=== PATIENT | male | born 1960 | race Caucasian/White ===

== ENCOUNTER 2017-10-30 12:19 | Emergency (ER) | payer MEDICARE ==
[~2017-10-30] VITALS: Ht 172.7 cm; Wt 58.1 kg
[~2017-10-30 12:19] MED LIST: ALB6.7R INH; CEP500 PO; CEPH500C24 PO; CHOL100059 PO; CITA-128 PO; CLI150 PO; CLON1 PO; CYCL10TA29 PO; DIAZ2TAB72 PO; ENAL20TA99 PO; ESC10 PO; FLUO-177 PO; FLUO-202 PO; FOLI-68 PO; GAB300 PO; GABA-549 PO; HYDR-385 PO; HYDR-4309 PO; IPRA4AER IH; LEVO750T25 PO; LIPA1CAP67 PO; LOR7.5/325 PO; MELA1TAB23 PO; METF-420 PO; METO-253 PO; NICO-306 BC; OMEP-114 PO; OXYC-865 PO; PAN40 PO; PER PO; TAM4 PO; THIA100T62 PO; TRAM100T22 PO; TRAZ-156 PO; [UNRECOGNIZED DRUG - CODE] PO; [UNRECOGNIZED DRUG - CODE] PO; [UNRECOGNIZED DRUG - CODE] TD
--- NOTE | 2017-10-30 12:23 | ER Report ---
History and Physical Time Seen By : 12:22 HPI/ROS 57 y/o male alcoholic with known liver disease is s/p surgery to his left shoulder 4 days ago presents with a swollen left hand that is weeping yellow fluid. No fever/chills. No pain. Hand has been swollen since the surgery, and is improving. No pain/paresthesias in hand. No other complaints. Was worried that the yellow fluid represented an infection. Allergies: Coded Allergies: No Known Drug Allergies (Verified , 10/30/17) Home Meds Reported Medications Aspirin (ASPIRIN) 325 Mg Tablet, 325 MG PO QDAY, TAB 10/30/17 Lorazepam (LORAZEPAM) 1 Mg Tab, TID, TAB 10/30/17 Lipase/Protease/Amylase (CREON DR 6,000 UNITS CAPSULE) 1 Each Capsule.dr, 1 EACH PO TID 10/30/17 Enalapril Maleate (ENALAPRIL MALEATE) 20 Mg Tablet, 40 MG PO BID 07/29/15 Metoprolol Tartrate (METOPROLOL TARTRATE) 50 Mg Tab, 0.5 TAB PO BID, TAB 02/24/15 Hydrocodone Bit/Acetaminophen (HYDROCODON-ACETAMINOPHEN 5-325) 1 Each Tablet, 1 TAB PO Q8H Y for severe pain 11/19/14 Gabapentin (GABAPENTIN) 300 Mg Capsule, 1 CAP PO TID, CAPSULE 11/19/14 Trazodone Hcl (TRAZODONE HCL) 50 Mg Tablet, 2 TAB PO QHS 11/19/14 Fluoxetine Hcl (FLUOXETINE HCL) 20 Mg Capsule, 3 CAP PO DAILY, CAPSULE 11/19/14 Cholecalciferol (Vitamin D3) (VITAMIN D3) 1,000 Unit Capsule, 2 CAP PO DAILY, CAPSULE 11/19/14 Folic Acid (FOLIC ACID) 1 Mg Tablet, 1 TAB PO DAILY, TAB 11/19/14 Thiamine Hcl (THIAMINE HCL) 100 Mg Tablet, 1 TAB PO DAILY 11/19/14 Multivitamin W/Iron, Minerals (MULTIVITAMINS WITH IRON) 1 Each Tab.chew, 1 EACH PO DAILY, TAB.CHEW 11/19/14 Discontinued Reported Medications Cyclobenzaprine Hcl (CYCLOBENZAPRINE HCL) 10 Mg Tablet, 10 MG PO Q8H Y for PAIN , #9 TAB 07/29/15 Metformin Hcl (METFORMIN HCL) 1,000 Mg Tablet, 0.5 TAB PO BID TAKE ONE TABLET BY MOUTH TWO TIMES A DAY 11/19/14 Discontinued Scripts Hydrocodone Bit/Acetaminophen (NORCO 5-325 TABLET) 1 Each Tablet, 1 EACH PO Q4H Y for PAIN, #12 TAB Prov:CHARAN BREEN DO 05/29/17 Cephalexin Monohydrate (CEPHALEXIN) 500 Mg Cap, 500 MG PO TID for infection, # 20 CAP TAKE 1 CAPSULE BY MOUTH EVERY SIX HOURS Prov:CHARAN BREEN DO 05/29/17 Reviewed Nurses Notes: Yes Old Medical Records Reviewed: Yes Hx Smoking: Yes Smoking Status: Current: Every Day Smoker Hx Substance Use Disorder: No Hx Alcohol Use: Yes (see admission assessment) Constitutional Vital Sign - Last 24 Hours 10/30/17 10/30/17 10/30/17 10/30/17 12:23 12:23 12:29 12:30 Temp 97.4 Pulse 62 Resp 20 B/P (MAP) 106/70 106/70 (82) 105/75 (85) O2 Delivery Room Air O2 Flow Rate 3.0 10/30/17 12:34 Pulse 62 Pulse Ox 93 Physical Exam General Appearance: The patient is alert, has no immediate need for airway protection and no current signs of toxicity. Eyes: Pupils equal and round, icteric sclera Respiratory: Chest is non tender, lungs are clear to auscultation. Cardiac: regular rate and rhythm Gastrointestinal: Abdomen is soft and non tender, no masses, bowel sounds normal. Musculoskeletal: Surgical site c/d/i. Moderate swelling of left UE into hand. Noted is a yellow discoloration of all of the patients skin, n/v/ in tact Neck: Neck is supple and non tender. Skin: No rashes or lesions, swelling in left hand. Mild oozing of yellow serous fluid from a small break in skin. No erythema, no warmth, no fluctuance, no TTP DIFFERENTIAL DIAGNOSIS: After history and physical exam differential diagnosis was considered for infection, compartment syndrome, cellulitis, abscess Medical Decision Making ED Course/Re-evaluation ED Course No evidence of infection. Sister is at the bedside, and states that his skin and sclera are the same color as they always are. No evidence of compartment syndrome. No cellulitis. n/v in tact. Decision to Disposition Date: Oct 30, 2017 Decision to Disposition Time: 12:59 Depart Departure Latest Vital Signs Vital Signs Date Time Temp Pulse Resp B/P (MAP) Pulse Ox O2 Delivery O2 Flow Rate FiO2 10/30/17 12:34 62 93 10/30/17 12:30 105/75 (85) 10/30/17 12:29 3.0 10/30/17 12:23 97.4 20 Room Air Impression: Primary Impression: Edema Condition: Improved Disposition: HOME OR SELF-CARE Referrals: MELISSA COVARRUBIAS APRN [facility] HE[facility] ADVISOR-C (PCP) Patient Instructions: Edema,Peripheral Problem Qualifiers Primary Impression: Edema Edema type: localized Qualified Codes: R60.0 - Localized edema RIVAS ROTHMAN MD Oct 30, 2017 12:23
[2017-10-30 12:30] VITALS: BP 105/75
[2017-10-30] MEDS ORDERED: LOR1 (12:43)
[2017-10-30] MEDS ORDERED: LIPA1CAP59 PO (12:43)
[2017-10-30] MEDS ORDERED: ASPI-757 PO (12:44)
== END 2017-10-30 13:05 | disposition home or self-care (01) ==
LOC: ER 12:27
DX: R60.0 Localized edema (principal)
CPT/HCPCS: 99281

== ENCOUNTER 2018-01-31 10:30 | Outpatient (RCR) | payer OTHER, MEDICARE ==
--- NOTE | 2017-11-23 08:36 | PT INITIAL EVALUATION ---
MEDICAL DIAGNOSIS: Left Total Shoulder TREATMENT DIAGNOSIS: same DATE OF ONSET: 10/19/17 SUBJECTIVE: Marv De La Rosa presents to physical therapy status post L total shoulder on October 19, 2016 as a result of a fall on the 22 of May resulting in a L shoulder dislocation. He rates his resting pain to be 5/10. He reports that if he jerks his shoulder or moves quickly, he rates that the pain in his L shoulder increases to 9/10 or 10/10 for a brief moment and then returns to his resting 5/10 pain. He reports that he has been wearing the sling and moving his elbow and wrist around often. He reports that he would like to get back to camping, fishing, and washing dishes by the end of his PT. He reports that he continues to have pins and needles over his wrist, hand, and into his fingers on his L side, which started around the same time as the initial injury. Pain location is L anterior shoulder and described as achy, sore. Pain scale is 5 on a ten point pain scale. REHAB PROBLEM LIST: Increased Pain Decreased ROM Decreased Strength Decreased Endurance Decreased Function Decreased ADL's PREVIOUS MEDICAL HISTORY: See EMR OCCUPATION: Unemployed OBJECTIVE: Incision is fully healed without any signs or symptoms of infection Posture: He demonstrates B rounded shoulders, forward head, increased thoracic kyphosis, and decreased lumbar lordosis. ROM: PROM of L shoulder: abduction: 100 degrees, scaption: 120 degrees, flexion : 110 degrees, IR: 90 degrees at his side, ER: 20 degrees at his side. He demonstrated empty end feels with every directions Strength: Did not test due to recent surgical intervention Palpation: TTP: over L anterior shoulder Sensation: Decreased sensation over L C5-T1 dermatomes Special Tests: QuickDash: 91%. Mobility: Independent Gait: Normal Gait Mechanics ASSESSMENT: He will benefit from skilled physical therapy addressing the listed impairments to return to prior level of function. Short Term Goals 3 weeks: Pt will demonstrate full PROM into L shoulder flexion, abduction, and scaption to improve function and QOL. 6 weeks: Pt will demonstrate full AAROM into L shoulder flexion, abduction, and scaption to improve function and QOL. 8 weeks: Pt will demonstrate full AROM into L shoulder flexion, abduction, and scaption to improve function and QOL. 12 weeks: Pt will demonstrate return to L shoulder RTC and periscapular strength to 4+/5 or greater to improve function and QOL. Patient's Goals return to washing dishes, picking up wood, and camping/fishing PLAN: Patient to be seen for Manual Therapy/STM/MET Strengthening/condition Ice/Heat Range of Motion Spinal Stabilization Work Hardening/Cond Stretching Neuromuscular Re-ed Closed Chain Program Electrical Stim Posture/Body mechanics Home Exercise Program Therapeutic Activities 2-3/week for 12 weeks. If you have any questions, comments, or concerns about this report or plan, please contact me at . [facility]
[~2018-01-31 10:30] MED LIST changes: +ASPI-757 PO; +LIPA1CAP59 PO; +LOR1; -METF-420 PO; +METF-421 PO
== END 2018-02-20 ==
LOC: PT 10:30
PROVIDERS: ATTEND Nurse Practitioner Family
DX: Z47.1 Aftercare following joint replacement surgery (principal); Z96.612 Presence of left artificial shoulder joint; M25.512 Pain in left shoulder; R20.2 Paresthesia of skin
CPT/HCPCS: 97163

== ENCOUNTER 2018-02-24 10:27 | Outpatient (RCR) | payer OTHER, MEDICARE ==
--- NOTE | 2018-02-25 10:24 | PT PLAN OF CARE ---
Physician: Jazmyn Cui CHAMBER WORKER- Patient is being seen: 2x/week Therapist: Isra Koo, PT, DPT Medical Diagnosis: Left Total Shoulder Treatment Diagnosis: same Date of Onset: 10/19/17 Date of Initial Evaluation: 11/22/17 Date patient was last seen: 02/24/18 Number of treatments: 10 Number of cancellations/No shows: 15 INTERVENTIONS: Manual Therapy/STM/MET Strengthening/condition Ice/Heat Range of Motion Spinal Stabilization Work Hardening/Cond Stretching Neuromuscular Re-ed Closed Chain Program Electrical Stim Posture/Body mechanics Home Exercise Program Therapeutic Activities GOALS: 3 weeks: Pt will demonstrate full PROM into L shoulder flexion, abduction, and scaption to improve function and QOL. NM 6 weeks: Pt will demonstrate full AAROM into L shoulder flexion, abduction, and scaption to improve function and QOL. NM 8 weeks: Pt will demonstrate full AROM into L shoulder flexion, abduction, and scaption to improve function and QOL. NM 12 weeks: Pt will demonstrate return to L shoulder RTC and periscapular strength to 4+/5 or greater to improve function and QOL. NM PATIENT'S GOAL: return to washing dishes, picking up wood, and camping/fishing: NM Status of Patient's Goals: Slowly Progressing Patient Compliance: Poor Prognosis: Excellent Reasons for continuing therapy: This is a progress note for Marv De La Rosa. 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 His quickDash reduced from 91% to 56%. He continues to progress slowly due to his inability to come to PT and his lack of compliance at home. We will continue to improve AAROM and AROM, improve periscapular strength, and return to prior level; however, I am unsure that we will achieve full return to function due to poor compliance. Posture: He demonstrates B rounded shoulders, forward head, increased thoracic kyphosis, and decreased lumbar lordosis. ROM: PROM of L shoulder: abduction: 180 degrees, scaption: 155 degrees, flexion : 153 degrees, IR: 90 degrees at his side, ER: 73 degrees. He demonstrated end range muscular tightness. AROM: flexion: 135 deg, abduction: 145 deg, ER: 49 deg. Special Tests: QuickDash: 56%. Mobility: Independent If you have any questions, please contact me at [phone]. Thank you, Isra Koo PT, DPT AYANA
== END 2018-02-24 18:00 | disposition home or self-care (01) ==
LOC: PT 10:27
PROVIDERS: ATTEND Nurse Practitioner Family
DX: Z47.1 Aftercare following joint replacement surgery (principal); Z96.612 Presence of left artificial shoulder joint; M25.512 Pain in left shoulder; R20.2 Paresthesia of skin

== ENCOUNTER 2018-06-04 21:23 | Inpatient (IN) | payer MEDICARE, OTHER ==
[~2018-06-04] VITALS: Ht 172.7 cm; Wt 49.4 kg
--- NOTE | 2018-06-04 21:22 | ER Report ---
History and Physical Time Seen By MD: 21:22 HPI/ROS CHIEF COMPLAINT: weakness and loss of speech HISTORY OF PRESENT ILLNESS: This is a 58 year old male. He had an episode tonight where he lost the ability to speak and had weakness, mainly in the left side of his body. He reports having some trouble with moving his left arm and leg this morning as well. Unable to tell when the last known normal was, given this history. The acute episode that caused the call to EMS was about 45 minutes prior to arrival. Having chronic ongoing weakness in the left arm after shoulder surgery in October. No history of past known strokes, but has had a TIA in the past. No fevers or chills. No cough or shortness of breath. He did have a short episode of chest pain yesterday, but denies chest pain today. Has no abdominal pain. He was having ongoing vomiting multiple times tonight. His sister, who he is staying at, said that after he was throwing up in the bathroom he was just not acting right after the vomiting and before the episode that triggered the call for EMS. He does have a mild headache and feels a little dizzy. REVIEW OF SYSTEMS: Constitutional: No fever or chills. Eyes: No vision changes. ENT: No sore throat. No congestion. Cardiovascular: No chest pain. No palpitations. Respiratory: No cough. No shortness of breath. Gastrointestinal: No abdominal pain. Genitourinary: Denies trouble urinating. Musculoskeletal: No back pain. Has left shoulder pain. Skin: No rashes. Neurological: As above. Allergies: Coded Allergies: No Known Drug Allergies (Verified , 10/30/17) Home Meds Reported Medications Aspirin (ASPIRIN) 325 Mg Tablet, 325 MG PO QDAY, TAB 10/30/17 Lorazepam (LORAZEPAM) 1 Mg Tab, TID, TAB 10/30/17 Lipase/Protease/Amylase (SUSHILA DR 6,000 UNITS CAPSULE) 1 Each Capsule.dr, 1 EACH PO TID 10/30/17 Enalapril Maleate (ENALAPRIL MALEATE) 20 Mg Tablet, 40 MG PO BID 07/29/15 Metoprolol Tartrate (METOPROLOL TARTRATE) 50 Mg Tab, 0.5 TAB PO BID, TAB 02/24/15 Hydrocodone Bit/Acetaminophen (HYDROCODON-ACETAMINOPHEN 5-325) 1 Each Tablet, 1 TAB PO Q8H PRN for severe pain 11/19/14 Gabapentin (GABAPENTIN) 300 Mg Capsule, 1 CAP PO TID, CAPSULE 11/19/14 Trazodone Hcl (TRAZODONE HCL) 50 Mg Tablet, 2 TAB PO QHS 11/19/14 Fluoxetine Hcl (FLUOXETINE HCL) 20 Mg Capsule, 3 CAP PO DAILY, CAPSULE 11/19/14 Cholecalciferol (Vitamin D3) (VITAMIN D3) 1,000 Unit Capsule, 2 CAP PO DAILY, CAPSULE 11/19/14 Folic Acid (FOLIC ACID) 1 Mg Tablet, 1 TAB PO DAILY, TAB 11/19/14 Thiamine Hcl (THIAMINE HCL) 100 Mg Tablet, 1 TAB PO DAILY 11/19/14 Multivitamin W/Iron, Minerals (MULTIVITAMINS WITH IRON) 1 Each Tab.chew, 1 EACH PO DAILY, TAB.CHEW 11/19/14 Past Medical/Surgical History History of TIA, hypertension, pancreatitis with history of stent, fatty liver disease, history of heavy alcohol use, chronic smoking, inguinal hernia repairs, neck surgery, rotator cuff repair and shoulder replacement surgery Reviewed Nurses Notes: Yes Hx Smoking: Yes Smoking Status: Current: Every Day Smoker Hx Substance Use Disorder: No Hx Alcohol Use: Yes (QUITTING, NONE SINCE SURGERY ON 10/19) Constitutional Vital Sign - Last 24 Hours 06/04/18 06/04/18 06/04/18 06/04/18 21:29 21:38 21:45 21:53 Temp 99.0 Pulse 5 76 71 Resp 20 16 25 B/P (MAP) 130/86 137/89 (105) Pulse Ox 99 95 99 O2 Delivery Room Air 06/04/18 06/04/18 06/04/18 06/04/18 22:00 22:30 22:38 22:45 Pulse 70 Resp 17 B/P (MAP) 137/88 (104) 118/81 (93) 140/95 (110) Pulse Ox 100 06/04/18 06/04/18 06/04/18 06/04/18 22:53 23:00 23:05 23:15 Pulse 72 71 Resp 13 18 B/P (MAP) 132/89 (103) 129/89 (102) Pulse Ox 100 100 06/04/18 06/04/18 06/04/18 06/04/18 23:20 23:30 23:35 23:40 Pulse 73 71 71 Resp 11 23 18 B/P (MAP) 128/101 (110) Pulse Ox 99 99 100 06/04/18 06/04/18 06/05/18 06/05/18 23:45 23:55 00:00 00:10 Pulse 73 68 Resp 13 32 B/P (MAP) 132/96 (108) 120/95 (103) Pulse Ox 98 97 06/05/18 00:15 B/P (MAP) 129/93 (105) Physical Exam General Appearance: The patient is alert. No acute distress. Eyes: Pupils are equal, round. Reactive to light. No pallor, injection or icterus. Extraocular movements are intact. Normal visual [place]wick. ENT: Mucous membranes are moist. Normal oral mucosa. Posterior oropharynx is normal. Neck: Supple and non tender. No lymphadenopathy. Respiratory: Lungs are clear to auscultation. Cardiovascular: Regular rate and rhythm. No murmurs, gallops or rubs. Normal capillary refill. No edema. Gastrointestinal: Abdomen is soft and non tender. Nondistended. Normal active bowel sounds. Neurological: Alert and oriented x3. NIH stroke scale, scored 3, one point for not knowing the current month, 1 point for ataxia on left side, and 1 point for sensory problems, less sensation on the left side compared to the right side. Cranial nerve exam shows no deficits, normal sensation, no motor weakness, midline tongue, and symmetric palate elevation. Peripheral exam shows decreased sensation on the left, ataxia, but slight decrease in strength on left compared to right. Skin: Warm and dry. No rashes. Musculoskeletal: Has some chronic pain in the left shoulder, unchanged. No other pain. Limited range of motion of the left shoulder. No tenderness in palpation of the cervical, thoracic and lumbar spine. DIFFERENTIAL DIAGNOSIS: After history and physical exam, differential diagnosis was considered for altered mental status and weakness tonight, concerning for stroke versus other metabolic or cardiac problems. Medical Decision Making Data Points Result Diagram: 06/04/18213906/04/182139 Laboratory Hematology Test 06/04/18 21:38 06/04/18 21:40 06/04/18 23:36 Whole Blood Glucose 133 mg/DL (75-110) Red Blood Count 3.81 M/uL (4.00-5.60) Mean Corpuscular Volume 88.3 fL (80.0-96.0) Mean Corpuscular Hemoglobin 30.7 pg (26.0-33.0) Mean Corpuscular Hemoglobin Concent 34.8 g/dL (32.0-36.0) Red Cell Distribution Width 15.0 % (11.5-14.5) Mean Platelet Volume 7.7 fL (7.2-11.1) Neutrophils (%) (Auto) 61.5 % (39.4-72.5) Lymphocytes (%) (Auto) 28.7 % (17.6-49.6) Monocytes (%) (Auto) 7.9 % (4.1-12.4) Eosinophils (%) (Auto) 0.7 % (0.4-6.7) Basophils (%) (Auto) 1.2 % (0.3-1.4) Nucleated RBC Relative Count (auto) 0.0 /100WBC Neutrophils # (Auto) 5.5 K/uL (2.0-7.4) Lymphocytes # (Auto) 2.6 K/uL (1.3-3.6) Monocytes # (Auto) 0.7 K/uL (0.3-1.0) Eosinophils # (Auto) 0.1 K/uL (0.0-0.5) Basophils # (Auto) 0.1 K/uL (0.0-0.1) Nucleated RBC Absolute Count (auto) 0.00 K/uL Prothrombin Time 12.5 seconds (12.0-14.4) Prothromb Time International Ratio 0.94 Activated Partial Thromboplast Time 27 seconds (23-35) Sodium Level 122 mmol/L (137-145) Potassium Level 3.7 mmol/L (3.5-5.0) Chloride Level 91 mmol/L (98-107) Carbon Dioxide Level 22 mmol/L (22-30) Blood Urea Nitrogen 3 mg/dl (9-21) Creatinine 0.50 mg/dl (0.66-1.25) Glomerular Filtration Rate Calc > 60.0 Random Glucose 120 mg/dl (75-110) Calcium Level 8.6 mg/dl (8.4-10.2) Total Bilirubin 0.2 mg/dl (0.2-1.3) Aspartate Amino Transf (AST/SGOT) 54 U/L (0-35) Alanine Aminotransferase (ALT/SGPT) 36 U/L (0-56) Alkaline Phosphatase 102 U/L (0-126) Total Protein 6.0 g/dl (6.3-8.2) Albumin 3.2 g/dl (3.5-5.0) Troponin I 0.049 ng/ml Chemistry Test 06/04/18 21:38 06/04/18 21:40 06/04/18 23:36 Whole Blood Glucose 133 mg/DL (75-110) White Blood Count 8.9 k/uL (4.5-11.0) Red Blood Count 3.81 M/uL (4.00-5.60) Hemoglobin 11.7 g/dL (14.0-18.0) Hematocrit 33.6 % (42.0-52.0) Mean Corpuscular Volume 88.3 fL (80.0-96.0) Mean Corpuscular Hemoglobin 30.7 pg (26.0-33.0) Mean Corpuscular Hemoglobin Concent 34.8 g/dL (32.0-36.0) Red Cell Distribution Width 15.0 % (11.5-14.5) Platelet Count 217 K/uL (150-450) Mean Platelet Volume 7.7 fL (7.2-11.1) Neutrophils (%) (Auto) 61.5 % (39.4-72.5) Lymphocytes (%) (Auto) 28.7 % (17.6-49.6) Monocytes (%) (Auto) 7.9 % (4.1-12.4) Eosinophils (%) (Auto) 0.7 % (0.4-6.7) Basophils (%) (Auto) 1.2 % (0.3-1.4) Nucleated RBC Relative Count (auto) 0.0 /100WBC Neutrophils # (Auto) 5.5 K/uL (2.0-7.4) Lymphocytes # (Auto) 2.6 K/uL (1.3-3.6) Monocytes # (Auto) 0.7 K/uL (0.3-1.0) Eosinophils # (Auto) 0.1 K/uL (0.0-0.5) Basophils # (Auto) 0.1 K/uL (0.0-0.1) Nucleated RBC Absolute Count (auto) 0.00 K/uL Prothrombin Time 12.5 seconds (12.0-14.4) Prothromb Time International Ratio 0.94 Activated Partial Thromboplast Time 27 seconds (23-35) Glomerular Filtration Rate Calc > 60.0 Calcium Level 8.6 mg/dl (8.4-10.2) Total Bilirubin 0.2 mg/dl (0.2-1.3) Aspartate Amino Transf (AST/SGOT) 54 U/L (0-35) Alanine Aminotransferase (ALT/SGPT) 36 U/L (0-56) Alkaline Phosphatase 102 U/L (0-126) Total Protein 6.0 g/dl (6.3-8.2) Albumin 3.2 g/dl (3.5-5.0) Troponin I 0.049 ng/ml Coagulation Test 06/04/18 21:40 Prothrombin Time 12.5 seconds Prothromb Time International Ratio 0.94 Activated Partial Thromboplast Time 27 seconds EKG/Imaging EKG Interpretation 12 lead EKG: Rhythm: normal sinus rhythm, rate 70 [place]: normal QRS: Left ventricular hypertrophy ST segments: No ST elevation or depression noted, nonspecific T-wave changes Imaging EXAMINATION: CT head without IV contrast HISTORY: Stroke alert. Neurologic deficit. TECHNIQUE: Axial CT images of the head were obtained from the vertex to the skull base without IV contrast, with coronal and sagittal 2D reconstructed images. One of the following dose optimization techniques was utilized in the performance of this exam: Automated exposure control; adjustment of the mA and/or kV according to the patient's size; or use of an iterative reconstruction technique. Specific details can be referenced in the facility's radiology CT exam operational policy. COMPARISON: 05/29/2017. FINDINGS: Mild generalized parenchymal atrophy, with patchy low attenuation in the deep white matter, compatible with chronic small vessel ischemic change. Stable small region of chronic encephalomalacia in the superior left frontal lobe, compatible with old infarct. Stable old lacunar infarcts in the left cerebellum are stable. There is a new small localized region of low attenuation change with loss of peters-white differentiation along the posterior left parietal lobe, measuring up to 1.5 cm (axial image 55). This may be subacute in nature with suggestion of slight adjacent sulcal effacement. In addition there is a new small focus of low attenuation change along the cortex of the posterior right occipital lobe compatible with a small infarct, age indeterminate but possibly subacute or chronic. No evidence of intracranial hemorrhage or mass effect. No midline shift or extra-axial fluid collections. The basal cisterns are patent. The calvarium is intact. The partially visualized paranasal sinuses and mastoid air cells are unopacified. IMPRESSION: 1. No CT evidence of intracranial hemorrhage. 2. Stable small chronic infarcts involving the superior left frontal lobe and left cerebellum. 3. New small focus of low attenuation along the posterior left parietal lobe compatible with infarct, of uncertain chronicity but possibly subacute. Correlate clinically. Follow-up MRI could be performed for further evaluation as indicated. 4. Additional new small infarct in the posterior right occipital lobe, age indeterminate and possibly subacute or chronic. 5. Mild parenchymal atrophy with chronic small vessel ischemic change. Findings were discussed with the telestroke physician Sujit Ayala MD at 06/04/2018 9:44 PM. Report Dictated By: Oj Dimas MD at 06/04/2018 9:38 PM ED Course/Re-evaluation Clinical Indication for ER IV: IV Access ED Course The patient was taken to CT scan on arrival by EMS. Then taken to a room. Blood sugar was 133. Had IVs placed. NIH stroke scale done at the same time. Scored 3 as noted. Telestroke accessed and Dr. Ayala, neurology, evaluated the patient. Repeat NIH stroke scale scored a 2. Based on history, outside of any window for thrombolytic therapy. CTA of head and neck obtained to rule out large vessel ischemic disease which was thought less likely. This looks more like ataxia, likely due to some subacute stroke. CT head showed old and question of subacute lesions. Labs were returning and the patient does have a low sodium of 122. His troponin was negative. EKG showed no signs of current ischemia. The rest of the labs were unremarkable. Repeat Troponin and EKG unchanged. Found out from family that he drinks beer pretty much from the time he wakes to when he goes to bed, uncertain exact quantity. Has received a liter of normal saline here in the ER and a full dose aspirin 325mg and Atorvastatin 80mg oral dose. Discussed with Dr. Ahumada who will admit for further workup of stroke and treatment of the hyponatremia. Decision to Disposition Date: Jun 05, 2018 Decision to Disposition Time: 00:14 Depart Departure Latest Vital Signs Vital Signs Date Time Temp Pulse Resp B/P (MAP) Pulse Ox O2 Delivery O2 Flow Rate FiO2 06/05/18 00:15 129/93 (105) 06/05/18 00:10 68 32 97 06/04/18 21:29 99.0 Room Air Impression: Primary Impression: Acute ischemic stroke Additional Impressions: Hyponatremia Altered mental status Weakness Condition: Condition Unchanged Disposition: Admitted from ER Referrals: MELISSA COVARRUBIAS APRNP-C (PCP) Problem Qualifiers Additional Impressions: Altered mental status Altered mental status type: transient alteration of awareness Qualified Codes: R40.4 - Transient alteration of awareness REINA WILLS MD Jun 04, 2018 21:22
[~2018-06-04 21:23] MED LIST changes: -ALBUTEROL INH; -ASPI81TA94 PO; -ATOR40TA24 PO; -IPRATRO INH; -LIPA1CAP63 PO; -METF-421 PO; +METF-452 PO; -OMEP-125 PO; -TRAZ100T31 PO; -VITA-175 PO
--- NOTE | 2018-06-04 21:37 | EKG ---
FACILITY: [facility] PATIENT NAME: GLYNN RAMIREZ : [id number] MR: [id number] V: [id number] EXAM DATE: ORDERING PHYSICIAN: REINA WILLS TECHNOLOGIST: CHLOE Test Reason : NEURO DEFICIT - ? limb lead placement Blood Pressure : / mmHG Vent. Rate : 070 BPM Atrial Rate : 070 BPM P-R Int : 138 ms QRS Dur : 094 ms QT Int : 426 ms P-R-T Axes : 014 -21 -38 degrees QTc Int : 460 ms Normal sinus rhythm Left ventricular hypertrophy with repolarization abnormality Abnormal ECG When compared with ECG of 29-JUL-2015 17:46, T wave inversion now evident in Inferior leads Nonspecific T wave abnormality, worse in Lateral leads QT has shortened Confirmed by LORENA JAMES ([id number]) on 06/05/2018 6:44:13 AM Referred By: Confirmed By:LORENA JAMES
[2018-06-04 21:46] LABS: PLATELET COUNT, AUTOMATED 217 K/uL (150-450)
--- NOTE | 2018-06-04 22:00 | RADIOLOGY IMAGING REPORT ---
FACILITY: [facility] PATIENT NAME: Marv De La Rosa : 1960 MR: [id number] V: [id number] EXAM DATE: ORDERING PHYSICIAN: REINA WILLS TECHNOLOGIST: [place] [facility] [place] Patient: Marv De La Rosa : 1960 Visit/Account:[id number] Date of Sevice: 06/04/2018 EXAMINATION: CT head without IV contrast HISTORY: Stroke alert. Neurologic deficit. TECHNIQUE: Axial CT images of the head were obtained from the vertex to the skull base without IV c ontrast, with coronal and sagittal 2D reconstructed images. One of the following dose optimization techniques was utilized in the performance of this exam: Autom ated exposure control; adjustment of the mA and/or kV according to the patient's size; or use of an i terative reconstruction technique. Specific details can be referenced in the facility's radiology C T exam operational policy. COMPARISON: 05/29/2017. FINDINGS: Mild generalized parenchymal atrophy, with patchy low attenuation in the deep white matter, compatibl e with chronic small vessel ischemic change. Stable small region of chronic encephalomalacia in the superior left frontal lobe, compatible with ol d infarct. Stable old lacunar infarcts in the left cerebellum are stable. There is a new small localized region of low attenuation change with loss of peters-white differentiati on along the posterior left parietal lobe, measuring up to 1.5 cm (axial image 55). This may be subac yenni in nature with suggestion of slight adjacent sulcal effacement. In addition there is a new small focus of low attenuation change along the cortex of the posterior right occipital lobe compatible wit h a small infarct, age indeterminate but possibly subacute or chronic. No evidence of intracranial hemorrhage or mass effect. No midline shift or extra-axial fluid collecti ons. The basal cisterns are patent. The calvarium is intact. The partially visualized paranasal sinuses and mastoid air cells are unopaci fied. IMPRESSION: 1. No CT evidence of intracranial hemorrhage. 2. Stable small chronic infarcts involving the superior left frontal lobe and left cerebellum. 3. New small focus of low attenuation along the posterior left parietal lobe compatible with infarct, of uncertain chronicity but possibly subacute. Correlate clinically. Follow-up MRI could be performe d for further evaluation as indicated. 4. Additional new small infarct in the posterior right occipital lobe, age indeterminate and possibly subacute or chronic. 5. Mild parenchymal atrophy with chronic small vessel ischemic change. Findings were discussed with the telestroke physician Sujit Ayala MD at 06/04/2018 9:44 PM. Report Dictated By: Oj Dimas MD at 06/04/2018 9:38 PM Report E-Signed By: Oj Dimas MD at 06/04/2018 9:56 PM WSN:[id number]
[2018-06-04 22:01] LABS: INR 0.94
[2018-06-04] MEDS ORDERED: ASPIRIN 325 MG TAB PO ONE (22:05)
[2018-06-04] MEDS ORDERED: ATORVASTATIN 40 MG TAB PO ONE (22:05)
[2018-06-04] MEDS ORDERED: NS(*) 0.9% 50 ML BAG 50 ML ONE ×2 (22:08→22:28)
[2018-06-04] MEDS ORDERED: IOPAMIDOL 76% 75 ML INFUS BTL 75 ML ONE ×2 (22:09→22:28)
[2018-06-04] MEDS ORDERED: NS(*) 0.9% 1000 ML BAG 1,000 ML IV ONE (23:30)
--- NOTE | 2018-06-04 23:31 | RADIOLOGY IMAGING REPORT ---
FACILITY: [facility] - [place] PATIENT NAME: Marv De La Rosa : 1960 MR: [id number] V: [id number] EXAM DATE: ORDERING PHYSICIAN: REINA WILLS TECHNOLOGIST: Location: [facility] Patient: Marv De La Rosa : 1960 Visit/Account:[id number] Date of Sevice: 06/04/2018 CTA of the neck and head: Indication: Left sided weakness. Possible infarct. Technique: Helical CT was performed from the aortic arch through the vertex following the injection o f 150 mL of Isovue-370, by 2 separate injections. Multiplanar reconstructions and MIP images are revi ewed. Stenosis of the internal carotid arteries is calculated using NASCET criteria. One of the following dose optimization techniques was utilized in the performance of this exam: Autom ated exposure control; adjustment of the mA and/or kV according to the patient's size; or use of an i terative reconstruction technique. Specific details can be referenced in the facility's radiology CT exam operational policy. Comparison: None. Findings: Aortic arch and great vessels: Patent and unremarkable. There are no signs of stenosis, aneurysm, or dissection. Right CCA/ICA: Patent and unremarkable. There is minimal calcification at the CCA bifurcation. There are no signs of stenosis, embolus, or dissection. Left CCA/ICA: There is mild calcification in the left carotid siphon. Otherwise patent and unremarkab le. There are no signs of stenosis, embolus, or dissection. Vertebro-basilar: There is atherosclerotic calcification in the right subclavian artery near the vert ebral artery origin, but there are no signs of stenosis. There is minimal calcification in the distal right vertebral artery, without stenosis. Otherwise patent and unremarkable. The right vertebral art [place] is dominant. [place]: Unremarkable. KATE circulation: Patent and unremarkable. No evidence of occlusion or stenosis. MCA circulation: Patent and unremarkable. No evidence of occlusion or stenosis. SECURITY TECHNICIAN circulation: Patent and unremarkable. No evidence of occlusion or stenosis. Brain: There is uniform contrast enhancement. There are no signs of enhancing mass or vascular malfor mation. Intracranial venous structures: Unremarkable, as visualized. Skeletal structures: There is evidence of prior anterior fusion procedure at C5, C6, and C7. The skel etal structures are in satisfactory alignment. There are moderate degenerative changes at C3-C4 and C 4-C5. No acute skeletal deformity is clearly identified. Additional non-angiographic findings: None significant. Impression: Unremarkable CTA evaluation. No evidence of occlusion, stenosis, or dissection. Report Dictated By: Rico Frias MD at 06/04/2018 11:09 PM Report E-Signed By: Rico Frias MD at 06/04/2018 11:27 PM WSN:[id number]
--- NOTE | 2018-06-04 23:34 | RADIOLOGY IMAGING REPORT ---
FACILITY: [facility] PATIENT NAME: Marv De La Rosa : 1960 MR: [id number] V: [id number] EXAM DATE: ORDERING PHYSICIAN: REINA WILLS TECHNOLOGIST: Location: [facility] [place] Patient: aMrv De La Rosa : 1960 Visit/Account:[id number] Date of Sevice: 06/04/2018 CTA of the neck and head: Indication: Left sided weakness. Possible infarct. Technique: Helical CT was performed from the aortic arch through the vertex following the injection o f 150 mL of Isovue-370, by 2 separate injections. Multiplanar reconstructions and MIP images are revi ewed. Stenosis of the internal carotid arteries is calculated using NASCET criteria. One of the following dose optimization techniques was utilized in the performance of this exam: Autom ated exposure control; adjustment of the mA and/or kV according to the patient's size; or use of an i terative reconstruction technique. Specific details can be referenced in the facility's radiology CT exam operational policy. Comparison: None. Findings: Aortic arch and great vessels: Patent and unremarkable. There are no signs of stenosis, aneurysm, or dissection. Right CCA/ICA: Patent and unremarkable. There is minimal calcification at the CCA bifurcation. There are no signs of stenosis, embolus, or dissection. Left CCA/ICA: There is mild calcification in the left carotid siphon. Otherwise patent and unremarkab le. There are no signs of stenosis, embolus, or dissection. Vertebro-basilar: There is atherosclerotic calcification in the right subclavian artery near the vert ebral artery origin, but there are no signs of stenosis. There is minimal calcification in the distal right vertebral artery, without stenosis. Otherwise patent and unremarkable. The right vertebral art [place] is dominant. [place]: Unremarkable. KATE circulation: Patent and unremarkable. No evidence of occlusion or stenosis. MCA circulation: Patent and unremarkable. No evidence of occlusion or stenosis. CUSTOM SHOEMAKER circulation: Patent and unremarkable. No evidence of occlusion or stenosis. Brain: There is uniform contrast enhancement. There are no signs of enhancing mass or vascular malfor mation. Intracranial venous structures: Unremarkable, as visualized. Skeletal structures: There is evidence of prior anterior fusion procedure at C5, C6, and C7. The skel etal structures are in satisfactory alignment. There are moderate degenerative changes at C3-C4 and C 4-C5. No acute skeletal deformity is clearly identified. Additional non-angiographic findings: None significant. Impression: Unremarkable CTA evaluation. No evidence of occlusion, stenosis, or dissection. Report Dictated By: iRco Frias MD at 06/04/2018 11:31 PM Report E-Signed By: Rico Frias MD at 06/04/2018 11:31 PM WSN:[id number]
--- NOTE | 2018-06-04 23:50 | EKG ---
[place] [facility] [place] GLYNN RAMIREZ : [id number] MR: [id number] V: [id number] EXAM DATE: ORDERING PHYSICIAN: REINA WILLS TECHNOLOGIST: CHLOE Test Reason : NEURO DEFICIT - limb leads accurate Blood Pressure : / mmHG Vent. Rate : 071 BPM Atrial Rate : 071 BPM P-R Int : 172 ms QRS Dur : 082 ms QT Int : 444 ms P-R-T Axes : 082 081 089 degrees QTc Int : 482 ms Normal sinus rhythm Nonspecific ST and T wave abnormality Prolonged QT Abnormal ECG When compared with ECG of 04-JUN-2018 21:33, Questionable change in QRS axis T wave inversion no longer evident in Inferior leads Confirmed by LORENA JAMES ([id number]) on 06/05/2018 6:44:20 AM Referred By: Confirmed By:LORENA JAMES
[2018-06-05] VITALS (7 sets, daily range): BP systolic 93–131; BP diastolic 64–83; Ht 172.7 cm; Wt 49.4 kg
[2018-06-05] MEDS ORDERED: INFLUENZA VIRUS VAC 0.5 ML SYR IM ONLY ONE (01:10)
--- NOTE | 2018-06-05 01:29 | History & Physical ---
History of Present Illness Chief Complaint Altered mental status History of Present Illness This patient presented to the emergency room secondary to altered mental status. His reports that he got up to go to the bathroom at around 7:30 this evening. She went to check on him an hour later, and found him to be confused. She also noted that his arms were very weak. It is believed that he was vomiting in the bathroom and he also reports diarrhea earlier in the day. His also reports that he has been complaining of chills. He is more alert now, but not back to baseline according to his . History Problems: (1) Alcohol abuse Status: Acute (2) History of chronic pancreatitis Status: Acute (3) HTN (hypertension) Onset Date: 11/19/2014 Status: Acute Home Meds Reported Medications Aspirin (ASPIRIN) 325 Mg Tablet, 325 MG PO QDAY, TAB 10/30/17 Lorazepam (LORAZEPAM) 1 Mg Tab, TID, TAB 10/30/17 Lipase/Protease/Amylase (CREON DR 6,000 UNITS CAPSULE) 1 Each Capsule.dr, 1 EACH PO TID 10/30/17 Enalapril Maleate (ENALAPRIL MALEATE) 20 Mg Tablet, 40 MG PO BID 07/29/15 Metoprolol Tartrate (METOPROLOL TARTRATE) 50 Mg Tab, 0.5 TAB PO BID, TAB 02/24/15 Hydrocodone Bit/Acetaminophen (HYDROCODON-ACETAMINOPHEN 5-325) 1 Each Tablet, 1 TAB PO Q8H PRN for severe pain 11/19/14 Gabapentin (GABAPENTIN) 300 Mg Capsule, 1 CAP PO TID, CAPSULE 11/19/14 Trazodone Hcl (TRAZODONE HCL) 50 Mg Tablet, 2 TAB PO QHS 11/19/14 Fluoxetine Hcl (FLUOXETINE HCL) 20 Mg Capsule, 3 CAP PO DAILY, CAPSULE 11/19/14 Cholecalciferol (Vitamin D3) (VITAMIN D3) 1,000 Unit Capsule, 2 CAP PO DAILY, CAPSULE 11/19/14 Folic Acid (FOLIC ACID) 1 Mg Tablet, 1 TAB PO DAILY, TAB 11/19/14 Thiamine Hcl (THIAMINE HCL) 100 Mg Tablet, 1 TAB PO DAILY 11/19/14 Multivitamin W/Iron, Minerals (MULTIVITAMINS WITH IRON) 1 Each Tab.chew, 1 EACH PO DAILY, TAB.CHEW 11/19/14 Allergies: Coded Allergies: No Known Drug Allergies (Verified , 10/30/17) Patient History: FH: cancer Mother's Side FH: pancreatic cancer MOTHER, , Age:73 FH: prostate cancer BROTHER OR SISTER, , Age:57 FH: thyroid cancer BROTHER OR SISTER Unknown FATHER Hx Smoking: Yes Smoking Status: Current: Every Day Smoker Hx Alcohol Use: Yes (QUITTING, NONE SINCE SURGERY ON 10/19) Hx Substance Use Disorder: No Social Drug Use: Never Review of Systems All Systems Reviewed/Normal: Yes, Except as Noted Constitutional: Chills Neurological: Confusion Gastrointestinal: Nausea, Vomiting, Diarrhea Exam Vital Signs Vital Signs Date Time Temp Pulse Resp B/P (MAP) Pulse Ox O2 Delivery O2 Flow Rate FiO2 06/05/18 00:35 72 8 92 06/05/18 00:30 130/89 (103) 06/04/18 21:29 99.0 Room Air Neuro: No Gross deficits Eyes: PERRLA Cardiovascular: Regular Rate and Rhythm Respiratory: Clear to Auscultation GI: Other (Tender in epigastric region.) Extremities: No Edema Integumentary: No Cyanosis Medical Decision Making Data Points Result Diagram: 06/04/18213906/04/182139 EKG / Imaging Imaging CT head and CTA of neck and head reviewed. Assessment and Plan Problems: (1) Hyponatremia Onset Date: 11/19/2014 Status: Acute Assessment & Plan: He was found to have a low sodium level, which is down 8 points from his levels on 05/29. He received a fluid bolus in the emergency department. We will ordered urine osmolality and urine sodium levels. A repeat sodium level is ordered for the morning. (2) Gastroenteritis Assessment & Plan: He did complain of nausea, vomiting, and diarrhea. He also had chills throughout the day. He is tender over the epigastric region and has a prior history of pancreatitis. A lipase level has been ordered. We will monitor for symptoms. (3) Altered mental status Status: Acute Assessment & Plan: He did present with confusion and weakness, which started around 7:30pm and lasted for several hours. His CT scan showed new areas of infarct when compared to his study on 05/29. A CTA of the head and neck was unremarkable. An MRI has been ordered for further evaluation. He also has a history of alcohol abuse. A serum alcohol level has been ordered. Venous Thromboembolism Antithrombotics Is Pt On Any Antithrombotics?: No Exam Sepsis Risk: No Definite Risk Problem Qualifiers (1) Altered mental status: Altered mental status type: transient alteration of awareness Qualified Codes: R40.4 - Transient alteration of awareness LORENA JAMES DO Jun 05, 2018 01:29
[2018-06-05 05:56] LABS: PLATELET COUNT, AUTOMATED 181 K/uL (150-450)
[2018-06-05] MEDS ORDERED: NICOTINE 14 MG/24 HR PATCH TD SCH (09:00)
[2018-06-05] MEDS ORDERED: DIAZEPAM 10 MG TAB PO PRN ×2 (09:05)
[2018-06-05] MEDS: APAP/HYDROCODONE 325/5 TAB PO PRN ×2 (09:27→17:21)
[2018-06-05] MEDS: NICOTINE INH SYSTEM 10 MG/INH INH PRN ×2 (09:27→16:01)
[2018-06-05] MEDS: THIAMINE HCL 100 MG TAB PO SCH (09:27)
[2018-06-05] MEDS: FOLIC ACID 1 MG TAB PO SCH (09:27)
--- NOTE | 2018-06-05 12:02 | RADIOLOGY IMAGING REPORT ---
FACILITY: [facility] - [place] PATIENT NAME: Marv De La Rosa : 1960 MR: [id number] V: [id number] EXAM DATE: ORDERING PHYSICIAN: CRISELDA YOON TECHNOLOGIST: Location: [facility] - [place] Patient: Marv De La Rosa : 1960 Visit/Account:[id number] Date of Sevice: 06/05/2018 Orbit radiograph INDICATION: MR screening COMPARISON: None available FINDINGS: Frontal view obtained. No dense orbital foreign debris identified. The sinuses are clear. No osseous abnormality. IMPRESSION: Normal orbit radiograph without evidence of dense foreign debris. Report Dictated By: Vpiul Mak MD at 06/05/2018 11:58 AM Report E-Signed By: Vipul Mak MD at 06/05/2018 11:59 AM WSN:[id number]
--- NOTE | 2018-06-05 12:18 | Hospitalist Progress Note ---
Subjective Progress Notes Subjective No problems overnight. His sister reports that he is much less confused. The patient is without complaints. Physical Exam Vital Signs Date Time Temp Pulse Resp B/P (MAP) Pulse Ox O2 Delivery O2 Flow Rate FiO2 06/05/18 10:57 64 06/05/18 08:00 94 Room Air 06/05/18 06:44 98.3 16 107/72 (84) Intake and Output 06/05/18 07:00 Intake Total 1000 ml Balance 1000 ml IV Total 1000 ml # Voids 1 # Bowel Movements 1 General Appearance: Alert, Awake, No Acute Distress Neuro: Other (No facial droop. Symmetric ginner/elbow flexion and extension strength. Decreased left dorsiflexion and hip flexion strength compared to the right. No clonus. Normal sensation to light touch bilaterally. He knows where he is, the month and year.) Extremities: No Edema Integumentary: No Jaundice, No Cyanosis Result Diagram: 06/05/18 0524 06/05/18523 Assessment and Plan Problems: (1) Altered mental status Status: Acute Assessment & Plan: He did present with confusion and diffuse weakness (L>R), which started around 7:30pm and lasted for several hours. His CT scan showed a new focus along the posterior left parietal lobe compatible with an infarct and a new small infarct in the posterior right occipital lobe that when compared to his study on 05/29. A CTA of the head and neck was unremarkable. An MRI has been ordered for further evaluation. He also has a history of alcohol abuse and has been cutting back over the last couple of days. His mental status is near normal this morning but does have some LLE weakness compared to the right. (2) Hyponatremia Onset Date: 11/19/2014 Status: Acute Assessment & Plan: He was found to have a low sodium level, which is down 8 points from his levels on 05/29. He received a fluid bolus in the emergency d epartment, but now saline locked. Urine osmolality is more concentrated than serum and the urine sodium is 22, so not exactly an SIADH picture. Sodium improving. Will follow. (3) Gastroenteritis Assessment & Plan: He did complain of nausea, vomiting, and diarrhea upon admission, but vomiting since admission. He had a loose stool this morning. He is tender over the epigastric region and has a prior history of pancreatitis. A lipase level normal. Check stool studies. (4) Alcohol abuse Status: Acute Assessment & Plan: He will be placed on the CIWA tool with Valium to cover. (5) Weight loss Status: Acute Assessment & Plan: He has lost about 50lbs since September. That corresponds with when his teeth were removed. He has been able to eat well since then. Prealbumin pending. Exam Sepsis Risk: No Definite Risk Problem Qualifiers (1) Altered mental status: Altered mental status type: transient alteration of awareness Qualified Codes: R40.4 - Transient alteration of awareness CRISELDA YOON MD Jun 05, 2018 12:18
--- NOTE | 2018-06-05 13:38 | RADIOLOGY IMAGING REPORT ---
FACILITY: [facility] PATIENT NAME: Marv De La Rosa : 1960 MR: [id number] V: [id number] EXAM DATE: ORDERING PHYSICIAN: CRISELDA YOON TECHNOLOGIST: Location: [facility] Patient: Marv De La Rosa : 1960 Visit/Account:[id number] Date of Sevice: 06/05/2018 Examination: MR brain without contrast History: Left-sided weakness Comparison: CT head and neck angiogram and head CT June 04, 2018 Technique: Multiplane MR imaging was performed through the brain without contrast. Findings: Diffusion: A few punctate left occipital cortical or juxtacortical foci of diffusion bright signal. G reater than 10 bilateral punctate to small foci of diffusion bright signal in the left frontal white matter, left parietal cortex, left temporal juxtacortical white matter, right frontal vertex cortex a nd right occipital cortex. Faint small curvilinear patch of diffusion bright signal in the left lateral cerebellum. Similar sma ll faint patch of diffusion bright signal in the right cerebellum. Cortical diffusion restriction is seen in the left parietal lobe in the region of the hypodensity see n on the comparison head CT. Ventricles: Normal Midline shift: None Extraaxial fluid: None. Midline craniocervical structures: Normal Parenchyma: Multiple small bilateral chronic cerebellar infarcts. Left frontal lobe encephalomalacia. A few scattered punctate white matter high signal foci. Left parietal lobe 1.4 cm edema is unchanged in size compared to head CT keeping with subacute infarc t. Vascular flow voids: Normal Orbits and paranasal sinuses: Normal Impression: 1. 1.4 cm subacute unchanged left parietal lobe infarct. 2. Greater than 10 bilateral punctate foci of acute to subacute ischemia throughout the bilateral cer ebral hemispheres in the juxtacortical white matter and cortex in keeping with residua of an embolic shower. 3. Small bilateral faint patches of diffusion bright signal in the bilateral cerebellum which may rep resent T2 shine through artifact. Subacute cerebellar infarcts cannot be entirely excluded. 4. Multiple chronic cerebellar infarcts. 5. Left frontal lobe encephalomalacia Report Dictated By: Vipul Mak MD at 06/05/2018 1:23 PM Report E-Signed By: Vipul Mak MD at 06/05/2018 1:34 PM WSN:[id number]
[2018-06-05] MEDS: ASPIRIN 81 MG ENTERIC COATED PO SCH (14:08)
[2018-06-05] MEDS ORDERED: NS(*) 0.9% 1000 ML BAG 1,000 ML IV ONE (14:15)
[2018-06-05] MEDS: ATORVASTATIN 40 MG TAB PO SCH (20:40)
[2018-06-05] MEDS ORDERED: ATORVASTATIN 40 MG TAB PO SCH (21:00)
[2018-06-05] MEDS: IBUPROFEN 600 MG TAB PO PRN (22:14)
[2018-06-06 04:43] VITALS: BP 112/73
[2018-06-06] MEDS: APAP/HYDROCODONE 325/5 TAB PO PRN ×3 (04:52→22:51)
[2018-06-06 05:24] LABS: PLATELET COUNT, AUTOMATED 168 K/uL (150-450)
[2018-06-06] MEDS ORDERED: PATCH REMOVAL 1 EA TP SCH (09:00)
[2018-06-06] MEDS: THIAMINE HCL 100 MG TAB PO SCH (10:26)
[2018-06-06] MEDS: FOLIC ACID 1 MG TAB PO SCH (10:26)
[2018-06-06] MEDS: ASPIRIN 81 MG ENTERIC COATED PO SCH (10:26)
[2018-06-06 11:18] VITALS: BP 130/86
[2018-06-06] MEDS ORDERED: NS(*) 0.9% 1000 ML BAG 1,000 ML IV PRN (13:10)
[2018-06-06] MEDS: IBUPROFEN 600 MG TAB PO PRN (13:13)
--- NOTE | 2018-06-06 13:25 | Hospitalist Progress Note ---
Subjective Progress Notes Subjective 58M admitted after period of inability to speak and hyponatremia. ISIDRO overnight. Patient Complains of: Neurological: No: Syncope, Confusion, Weakness Cardiovascular: No: Chest Pain, Palpitations Respiratory: No: Cough, Congestion Gastrointestinal: No Nausea, No Vomiting Genitourinary: No Dysuria, No Hematuria Musculoskeletal: No: Pain Physical Exam Vital Signs Date Time Temp Pulse Resp B/P (MAP) Pulse Ox O2 Delivery O2 Flow Rate FiO2 06/06/18 11:18 95 06/06/18 11:18 59 18 130/86 (101) Room Air 57 06/06/18 04:43 98.2 Intake and Output 06/06/18 07:00 Intake Total 2543 ml Balance 2543 ml Intake Oral 1880 ml IV Total 663 ml # Voids 5 # Bowel Movements 5 General Appearance: Alert, Awake, No Acute Distress Neuro: No Gross deficits Eyes: PERRLA ENT: Normal Neck: No Masses Cardiovascular: Normal Rhythm & Peripheral Pulses Respiratory: No Respiratory Distress Chest: No Tenderness GI: Soft and Non-Tender Musculoskeletal: No Weakness/Pain Integumentary: Skin Intact without Lesion / Mass (2 splinter hemmorhages R hand.) Psych: Alert & Oriented X3 Result Diagram: 06/06/18 0507 06/06/18 0507 Assessment and Plan Problems: (1) Acute ischemic stroke Status: Acute Assessment & Plan: He did present with confusion and diffuse weakness (L>R), which started around 7:30pm and lasted for several hours. His CT scan showed a new focus along the posterior left parietal lobe compatible with an infarct and a new small infarct in the posterior right occipital lobe that when compared to his study on 05/29. A CTA of the head and neck was unremarkable. An MRI shows apparent shower emboli bilaterally. He also has a history of alcohol abuse and has been cutting back over the last couple of days. His mental status is near normal this morning but does have some LLE weakness compared to the right. BCx ordered given shower phenomena, ECHO within normal limits. PT/OT/speech consulted. 81mg ASA and statin. (2) Altered mental status Status: Acute Assessment & Plan: Resolved. (3) Hyponatremia Onset Date: 11/19/2014 Status: Acute Assessment & Plan: He was found to have a low sodium level, which is down 8 points from his levels on 05/29/17. Previous low results on review of records. He received a fluid bolus in the emergency department. Urine osmolality low and the urine sodium is 22. Appears to be either reset osmostat vs beer potomania. Will give NS, and monitor. (4) Gastroenteritis Assessment & Plan: He did complain of nausea, vomiting, and diarrhea upon admission, but vomiting since admission. He had a loose stool this morning. He is tender over the epigastric region and has a prior history of pancreatitis. A lipase level normal. Check stool studies. (5) Alcohol abuse Status: Acute Assessment & Plan: He will be placed on the [employer] Extraction tool with Valium to cover. (6) Weight loss Status: Acute Assessment & Plan: He has lost about 50lbs since September. That corresponds with when his teeth were removed. He has been able to eat well since then. Prealbumin pending. Exam Sepsis Risk: No Definite Risk Problem Qualifiers (1) Altered mental status: Altered mental status type: transient alteration of awareness Qualified Codes: R40.4 - Transient alteration of awareness SONAL DORSEY DO Jun 06, 2018 13:25
[2018-06-06] MEDS ORDERED: ALBUTEROL INH (13:57)
[2018-06-06] MEDS ORDERED: TRAZ100T31 PO (13:57)
[2018-06-06] MEDS ORDERED: OMEP-125 PO (13:57)
[2018-06-06] MEDS ORDERED: IPRATRO INH (13:57)
[2018-06-06] MEDS ORDERED: LIPA1CAP63 PO (14:01)
[2018-06-06] MEDS ORDERED: CYCL10TA29 PO (14:01)
[2018-06-06] MEDS ORDERED: ATOR40TA24 PO (14:10)
[2018-06-06] MEDS ORDERED: ASPI81TA94 PO (14:10)
[2018-06-06 14:38] VITALS: BP 116/75
[2018-06-06] MEDS: NICOTINE INH SYSTEM 10 MG/INH INH PRN (14:42)
[2018-06-06] MEDS: ONDANSETRON 4 MG/2 ML VIAL IVP PRN (16:24)
[2018-06-06] MEDS: METOCLOPRAMIDE 10 MG/2 ML SDV IVP PRN (18:35)
[2018-06-06 20:00] VITALS: BP 109/76
[2018-06-06] MEDS: ATORVASTATIN 40 MG TAB PO SCH (20:33)
[2018-06-06] MEDS: NS(*) 0.9% 1000 ML BAG 1,000 ML IV PRN (22:50)
[2018-06-06 22:53] VITALS: BP 113/83
[2018-06-07 03:02] VITALS: BP 127/88
[2018-06-07 06:00] LABS: PLATELET COUNT, AUTOMATED 175 K/uL (150-450)
[2018-06-07] MEDS: NS(*) 0.9% 1000 ML BAG 1,000 ML IV PRN (06:17)
[2018-06-07] MEDS ORDERED: NS(*) 0.9% 1000 ML BAG 1,000 ML IV PRN (06:33)
[2018-06-07 07:41] VITALS: BP 116/83
[2018-06-07] MEDS: APAP/HYDROCODONE 325/5 TAB PO PRN ×2 (07:59→16:24)
[2018-06-07] MEDS: ASPIRIN 81 MG ENTERIC COATED PO SCH (07:59)
[2018-06-07] MEDS: THIAMINE HCL 100 MG TAB PO SCH (08:00)
[2018-06-07] MEDS: FOLIC ACID 1 MG TAB PO SCH (08:00)
[2018-06-07] MEDS: SODIUM CHLORIDE 1 GR TAB PO SCH ×2 (09:47→20:35)
--- NOTE | 2018-06-07 11:23 | Hospitalist Progress Note ---
Subjective Progress Notes Subjective This patient was admitted for hyponatremia. He had no acute issues overnight. Patient Complains of: Cardiovascular: No: Chest Pain Respiratory: No: Shortness of Breath Physical Exam Vital Signs Date Time Temp Pulse Resp B/P (MAP) Pulse Ox O2 Delivery O2 Flow Rate FiO2 06/07/18 08:02 93 Room Air 06/07/18 07:41 98.5 66 14 116/83 (94) Intake and Output 06/07/18 06:59 Intake Total 2448 ml Balance 2448 ml Intake Oral 1116 ml IV Total 1332 ml # Voids 8 # Bowel Movements 6 Neuro: No Gross deficits Eyes: PERRLA Cardiovascular: Regular Rate and Rhythm Respiratory: Clear to Auscultation Extremities: No Edema Integumentary: No Cyanosis Result Diagram: 06/07/18 0549 06/07/18 0549 Assessment and Plan Problems: (1) Acute ischemic stroke Status: Acute Assessment & Plan: He did present with confusion and diffuse weakness (L>R), which started around 7:30pm and lasted for several hours. His CT scan showed a new focus along the posterior left parietal lobe compatible with an infarct and a new small infarct in the posterior right occipital lobe. A CTA of the head and neck was unremarkable. An MRI shows apparent shower emboli bilaterally. He also has a history of alcohol abuse and has been cutting back over the last couple of days. His mental status is near normal this morning but does have some LLE weakness compared to the right. Blood cultures have been negative and his echocardiogram did not show any significant findings. He is working with physical, occupational, and speech therapy. (2) Altered mental status Status: Acute Assessment & Plan: Resolved. (3) Hyponatremia Onset Date: 11/19/2014 Status: Acute Assessment & Plan: He was found to have a low sodium level, which was down 8 points from his levels on 05/29/17. His urine labs were appropriately dilute. H e has been started on sodium tablets. (4) Gastroenteritis Assessment & Plan: He has had intermittent nausea and diarrhea. Testing for C. difficile has been negative and his lipase has been normal. (5) Alcohol abuse Status: Acute Assessment & Plan: He will be placed on the CIWA tool with Valium to cover. (6) Weight loss Status: Acute Assessment & Plan: He has lost about 50lbs since September. That corresponds with when his teeth were removed. He has been able to eat well since then. Prealbumin pending. Exam Sepsis Risk: No Definite Risk Problem Qualifiers (1) Altered mental status: Altered mental status type: transient alteration of awareness Qualified Codes: R40.4 - Transient alteration of awareness LORENA JAMES DO Jun 07, 2018 11:23
[2018-06-07 15:34] VITALS: BP 151/104
[2018-06-07 19:30] VITALS: BP 150/102
[2018-06-07] MEDS: ATORVASTATIN 40 MG TAB PO SCH (20:41)
[2018-06-07 23:00] VITALS: BP 145/96
[2018-06-08] VITALS: BP 145/96
[2018-06-08] MEDS: ONDANSETRON 4 MG/2 ML VIAL IVP PRN (07:50)
[2018-06-08] MEDS: APAP/HYDROCODONE 325/5 TAB PO PRN (07:58)
[2018-06-08] MEDS: THIAMINE HCL 100 MG TAB PO SCH (07:58)
[2018-06-08] MEDS: ASPIRIN 81 MG ENTERIC COATED PO SCH (07:58)
[2018-06-08] MEDS: SODIUM CHLORIDE 1 GR TAB PO SCH (07:58)
[2018-06-08] MEDS: FOLIC ACID 1 MG TAB PO SCH (07:58)
[2018-06-08] MEDS ORDERED: VITA-175 PO (08:57)
--- NOTE | 2018-06-08 09:18 | Hospitalist Depart ---
Discharge Summary Reason for Hosp/Final Diag: (1) Acute ischemic stroke Status: Acute Hospital Course & Plan: He did present with confusion and weakness (L>R), which started around 7:30pm and lasted for several hours. His CT scan showed a new focus along the posterior left parietal lobe compatible with an infarct and a new small infarct in the posterior right occipital lobe. CT angiography of the head and neck was unremarkable. An MRI shows apparent "shower" emboli bilaterally. His mental status is near normal, but does have some LLE weakness compared to the right. His echocardiogram did not show any significant findings. His telemetry monitoring did not show any dysrhythmias (specifically atrial fibrillation). He is working with physical, occupational, and speech therapy. He has progressed to the point he can be discharged to home with home health PT/OT/nursing. He will follow up with either [facility] or the [facility] in next week. (2) Altered mental status Status: Acute Hospital Course & Plan: Resolved. (3) Hyponatremia Onset Date: 11/19/2014 Status: Acute Hospital Course & Plan: He has had chronic hyponatremia. He was found to have a lower sodium level. His urine labs were appropriately dilute. His sodium levels improved, but remained in the 122-124 range. His levels may improve as his nutrition improves. He will need close follow up of his lab. (4) Gastroenteritis Hospital Course & Plan: He has had intermittent nausea and diarrhea. Testing for C. difficile has been negative, culture negative, and his lipase has been normal. This may be related to his alcohol use/abuse and poor nutrition. His symptoms did improve during his stay. (5) Alcohol abuse Status: Acute Hospital Course & Plan: He was placed on the CIWA protocol with Valium to cover, but did not require any dosing. He will be continued on nutritional supplements/B vitamins. (6) Weight loss Status: Acute Hospital Course & Plan: He has lost about 50lbs since September. That c orresponds with when his teeth were removed. He has not been able to eat well since then. Prealbumin is low. He will begin using nutritional supplements (Ensure). [facility] Departure Weight (Pounds): 109 Result Diagram: 06/07/18 0549 06/07/18 0549 Item Value Date Time Sodium Level 122 mmol/L *L 06/04/18 2140 Potassium Level 3.7 mmol/L 06/04/18 2140 Chloride Level 91 mmol/L L 06/04/180 Carbon Dioxide Level 22 mmol/L 06/04/18 2140 Blood Urea Nitrogen 3 mg/dl L 06/04/18 2140 Creatinine 0.50 mg/dl L 06/04/18 214 Glomerular Filtration Rate Calc > 60.0 06/04/182139 Random Glucose 120 mg/dl H 06/04/180 Calcium Level 8.6 mg/dl 06/04/182139 Total Bilirubin 0.2 mg/dl 06/04/180 Aspartate Amino Transf (AST/SGOT) 54 U/L H 06/04/182139 Alanine Aminotransferase (ALT/SGPT) 36 U/L 06/04/182139 Alkaline Phosphatase 102 U/L 06/04/182139 Troponin I 0.041 ng/ml 06/04/182139 Total Protein 6.0 g/dl L 06/04/180 Albumin 3.2 g/dl L 06/04/180 Troponin I 0.049 ng/ml 06/04/18 2336 Troponin I 0.039 ng/ml 06/05/18 1325 Lipase 20 U/L L 06/04/18 2336 Prealbumin 16.6 mg/dL L 06/06/18 0507 Magnesium Level 1.9 mg/dl 06/05/18 1325 Sodium Level 121 mmol/L *L 06/07/18 0017 Potassium Level 4.5 mmol/L 06/07/18 0017 Chloride Level 96 mmol/L L 06/07/18 0017 Carbon Dioxide Level 24 mmol/L 06/07/18 0017 Blood Urea Nitrogen 2 mg/dl L 06/07/18 0017 Creatinine 0.40 mg/dl L 06/07/18 0017 Glomerular Filtration Rate Calc > 60.0 06/07/18 0017 Random Glucose 98 mg/dl 06/07/18 0017 Calcium Level 7.6 mg/dl L 06/07/18 0017 B-Type Natriuretic Peptide 221 pg/ml H 06/07/18 0017 Triglycerides Level 39 mg/dl 06/06/18 1927 Cholesterol Level 90 mg/dl 06/06/18 1927 LDL Cholesterol 10 mg/dl 06/06/181926 VLDL Cholesterol 8 mg/dl 06/06/181926 HDL Cholesterol 72 mg/dl 06/06/181926 Percent HDL Cholesterol 80.0 % 06/06/181926 Cholesterol Ratio (LDL/HDL) 0.13 06/06/181926 Cholesterol/HDL Ratio 1.3 06/06/181926 Prothrombin Time 12.5 seconds 06/04/18 214 Prothromb Time International Ratio 0.94 06/04/182139 Activated Partial Thromboplast Time 27 seconds 06/04/18 2140 White Blood Count 8.9 k/uL 06/04/18 2140 Hemoglobin 11.7 g/dL L 06/04/18 2140 Hematocrit 33.6 % L 06/04/18 2140 Platelet Count 217 K/uL 06/04/18 2140 Platelet Count 181 K/uL 06/05/18 0524 Hematocrit 26.7 % *L 06/05/18 0524 Hemoglobin 9.3 g/dL L 06/05/18 0524 White Blood Count 6.7 k/uL 06/05/18 0524 White Blood Count 8.1 k/uL 06/06/18 0507 Hemoglobin 9.0 g/dL *L 06/06/18 0507 Hematocrit 26.7 % *L 06/06/18 0507 Platelet Count 168 K/uL 06/06/18 0507 Urine Osmolality 337 mosm/K L 06/05/18 0130 Urine Random Sodium 22 MEQ/L 06/05/18 0130 Stool Leukocytes, Qualitative Positive 06/05/18 1315 Clostridium Difficile Toxin A & B Negative 06/05/18 1315 Clostridium difficile Antigen Negative 06/05/18 1315 Serum Alcohol < 10 mg/dl 06/04/18 2336 [facility] *LIVE* [address] [place] [address] NEYMAR STEVENS M.D., DIRECTOR OF LABORATORY SERVICES SONAL ORDOÑEZ M.D., PATHOLOGIST RUN DATE: 06/07/18 Specimen Inquiry Report PAGE 1 RUN TIME: 1000 PATIENT: GLYNN RAMIREZ ACCT: [id number] LOC: [facility] U: [id number] AGE/SX: 58/M ROOM: 2272 RE06/06/[address]: LORENA JAMES DO : 1960 BED: 272 DIS: STATUS: ADM IN TLOC: SPEC #: [id number] TAYLA: 06/06/18-1234 STATUS: RES REQ #: [id number] RECD: 06/06/18-[address]: SONAL DORSEY DO SOURCE: BLOOD ENTR: 06/06/18-[address]: LORENA JAMES DO SPDESC: CHARITO COVARRUBIAS APRN ORDERED: CULT BLOOD Procedure Result Verified BLOOD CULTURE Preliminary 06/07/18-1000 NO GROWTH AFTER 1 DAY, [facility]* [address] [place] [address] NEYMAR STEVENS M.D., DIRECTOR OF LABORATORY SERVICES SONAL ORDOÑEZ M.D., PATHOLOGIST RUN DATE: 06/07/18 Specimen Inquiry Report PAGE 1 RUN TIME: 1000 PATIENT: GLYNN RAMIREZ ACCT: [id number] LOC: MED U: [id number] AGE/SX: 58/M ROOM: [facility]2 RE06/06/[address]: LORENA JAMES DO : 1960 BED: 272 DIS: STATUS: ADM IN TLOC: SPEC #: [id number] TAYLA: 06/06/18-1220 STATUS: RES REQ #: [id number] RECD: 06/06/18-[address]: SONAL DORSEY DO SOURCE: BLOOD ENTR: 06/06/18-[address]: LORENA JAMES DO [facility]: CHARITO COVARRUBIAS APRN CLOUD ADMINISTRATOR-C ORDERED: CULT BLOOD Procedure Result Verified BLOOD CULTURE Preliminary 06/07/18-1000 NO GROWTH AFTER 1 DAY, REINCUBATED [facility] *LIVE* [address] [facility] [place] [address] NEYMAR STEVENS M.D., DIRECTOR OF LABORATORY SERVICES SONAL ORDOÑEZ M.D., PATHOLOGIST RUN DATE: 06/07/18 Specimen Inquiry Report PAGE 1 RUN TIME: 1059 PATIENT: GLYNN RAMIREZ ACCT: [id number] LOC: MED U: [id number] AGE/SX: 58/M ROOM: [facility]2 RE06/06/[address]: LORENA JAMES DO : 1960 BED: 272 DIS: STATUS: ADM IN TLOC: ------ SPEC #: [id number] TAYLA: 06/05/18 STATUS: COMP REQ #: [id number] RECD: 06/05/[address] [facility] [address]: CRISELDA YOON MD SOURCE: STOOL ENTR: 06/05/[address]: LORENA JAMES DO SPDESC: CHARITO COVARRUBIAS APRN CLOUD ADMINISTRATOR-C ORDERED: CULT STOOL COMMENTS: Has specimen been collected/obtained? Y --- Procedure Result Verified ---- STOOL CULTURE Final 06/07/18-105 NORMAL BOWEL NORIS PRESENT NO PATHOGENS PRESENT Condition: Improved Discharge: Home, Home Health PT/OT Follow Up For: PT For Strengthening, OT For ADL's, ST Evaluation and Treat Home Health RN Follow Up For: Medication Management, Nursing Assessment Home Health LABOR ECONOMIST Follow Up For: ADL Assistance Follow-Up Labs: Other (CBC, CMP in 7-10 days) Time Spent: > 30 min Discharge Instructions Home Meds Active Scripts Vitamin B Complex (B COMPLEX) 1 Each Tablet, 1 EACH PO DAILY, #100 TAB 1 Refill Prov:JASON OLMSTEAD MD 06/08/18 Reported Medications Atorvastatin Calcium (LIPITOR) 40 Mg Tablet, 0.5 TAB PO QDAY, TAB take 1/2 tablet of an 80 mg tablet for a dose of 40mg every night 06/06/18 Aspirin (ASPIRIN) 81 Mg Tab.chew, 81 MG PO QDAY, TAB.CHEW 06/06/18 Lipase/Protease/Amylase (SUSHILA DR 24,000 UNITS CAPSULE) 1 Each Capsule., 1 EACH PO TIDAC 06/06/18 [albuterol/ipratro] No Conflict Check, 1 PUFF INH QID PRN for SHORTNESS OF BREATH albuterol 100/ipratro 20 mcg 06/06/18 Hydrocodone Bit/Acetaminophen (HYDROCODON-ACETAMINOPHEN 5-325) 1 Each Tablet, 1 TAB PO Q8H PRN for severe pain 11/19/14 Cholecalciferol (Vitamin D3) (VITAMIN D3) 1,000 Unit Capsule, 3 CAP PO DAILY, CAPSULE 11/19/14 Multivitamin W/Iron, Minerals (MULTIVITAMINS WITH IRON) 1 Each Tab.chew, 1 EACH PO DAILY, TAB.CHEW 11/19/14 Discontinued Reported Medications Cyclobenzaprine Hcl (CYCLOBENZAPRINE HCL) 10 Mg Tablet, 0.5 TAB PO Q8H PRN for MUSCLE SPASMS, #9 TAB 06/06/18 Omeprazole (OMEPRAZOLE) 20 Mg Capsule., 2 CAP PO BIDAC, CAP 06/06/18 Trazodone Hcl (TRAZODONE HCL) 100 Mg Tablet, 100 MG PO HS, TAB 06/06/18 Enalapril Maleate (ENALAPRIL MALEATE) 20 Mg Tablet, 2 TAB PO BID 07/29/15 Metoprolol Tartrate (METOPROLOL TARTRATE) 50 Mg Tab, 0.5 TAB PO BID, TAB 02/24/15 Gabapentin (GABAPENTIN) 300 Mg Capsule, 1 CAP PO TID, CAPSULE 11/19/14 Fluoxetine Hcl (FLUOXETINE HCL) 20 Mg Capsule, 3 CAP PO DAILY, CAPSULE 11/19/14 Folic Acid (FOLIC ACID) 1 Mg Tablet, 1 TAB PO DAILY, TAB 11/19/14 Aspirin (ASPIRIN) 325 Mg Tablet, 325 MG PO QDAY, TAB 10/30/17 Lorazepam (LORAZEPAM) 1 Mg Tab, TID, TAB 10/30/17 Trazodone Hcl (TRAZODONE HCL) 50 Mg Tablet, 2 TAB PO QHS 11/19/14 Thiamine Hcl (THIAMINE HCL) 100 Mg Tablet, 1 TAB PO DAILY 11/19/14 Follow up Referrals: Family Practice @ [facility] with CHARITO COVARRUBIAS APRN Diet: Regular Activity: As Tolerated Special Instructions: Follow up with Primary Care Provider in next 5-7 days. Home Health for nursing, PT, OT. Copies to: MALOU DEUTSCH; CHARITO COVARRUBIAS APRN ; Venous Thromboembolism Antithrombotics Is Pt On Any Antithrombotics?: No Iusx-mz-Oeds Certification Face to Face Home Health Certification Institutional Provider conducted the [id number] encounter. Electronic Undersigning Physician Certifies Home Health. I certify that the patient has been under my care and that I had a [id number] encounter that meets the physician [id number] encounter requirements with this patient. This patient is home-bound due to safety issues and continues to require assistance with ADL's. I certify that based on my findings, that Nursing, Aides and the following Home Health services are medically necessary: Nursing, PT, OT Medical Necessity: Nursing, Rehab Date Face to Face Conducted: Jun 08, 2018 Problem Qualifiers (1) Altered mental status: Altered mental status type: transient alteration of awareness Qualified Codes: R40.4 - Transient alteration of awareness JASON OLMSTEAD MD Jun 08, 2018 09:18
[2018-06-08] MEDS: METOCLOPRAMIDE 10 MG/2 ML SDV IVP PRN (09:35)
--- NOTE | 2018-06-08 12:55 | Medical Nutrition Therapy ---
Nutrition Anthropometrics Height (Inches): 68.00 Height (Calculated Centimeters: 172.988550 Weight (Pounds): 109 Weight (Calculated Kilograms): 49.442 BMI: 16.6 Aj Nutrition Score: Probably Inadequate Aj Nutrition Risk Score: 18 Dietary Referral Nutrition Risk Factors: Unplanned Loss >10lbs, Recent Nutrition Impact Nutrition Risk Comment: EDENTUOUS, SOFT FOODS Physical Findings Physical Appearance: Underweight BMI<19 Skin Appearance Skin Appearance: Edema Edema Location Modifier: Edema Location: Type of Edema: Degree of Edema: Gastrointestinal Symptoms GI Symtoms: Nausea, Weight Changes, Change in Bowel Pattern Tube Present: Bowel Sounds: Recent Bowel Pattern: Diarrhea Stool Characteristics: Brown, Liquid Nutritional Diagnosis Nutritional Risk Acuity 1: Malnutrition Nutritional Risk Acuity 2: Unintended Wt Loss >5%/mo Nutritional Risk Acuity 3: Nausea Nutritional Risk Acuity 4: Modified Diet Past Medical History: alcohol abuse, chornic pancreatitis, HTN Nutritional Acuity: 1-High Nutrition Diagnosis: Under-weight Nutrition Etiology: Inadeq. Food/Makenzie Intake Nutrition Problem/Etiology/Sym: Malnoursihed, as related to inadequate food/beverage intake, as evidenced by severe muscle wasting in the temproal, clavical, shoulder, and leg regions. Diet Type: Fluid Restricted Nutrition Intervention: Cont diet as ordered, Encourage intake Diet Comment To RSA: OFFER NUTR SUPPL. Pt does not have teeth, recommend soft foods. Nutrition Monitoring & Eval RD Patient Assessment Time: [address] Assessment Type: RD Assessment Patient Nutrition Acuity: 1-High Follow Up Date: Jun 13, 2018 Nutritional Comment: 06/05 Pt admitted with AMS and will be treated for gastroenteritis and hyponatremia. PMH of alcohol abuse and pancreatitis. Currently on JAYSON with 75% intake of one meal in facility. BMI in underwt category 16 kg/m2. Notable labs include low H/H, Na 124, BUN 2, creatinine .5, glc 127, AST 36, tot pro 4.2, alb 2 and lipase 20. Agree with vit B suppl. Will offer nutr suppl and encourage intake. -EK 06/08. Pt is severely malnourished. A nutrition physical focused exam was conducted today. Found severe weight loss and muscle wasting in temporal, clavical, shoulder, and leg regions. Pt has underweight BMI of 16.6. Currently on a fluid restricted diet, consumes 25-100% of small or regular sized meals. Pt refused breakfast this morning. Pt has experiencing nausea and headache, possibly due to low intake of food. Noted pt has experienced significant weight loss lbs in 8 months. Pt has no, teeth recommend soft foods. Will cont to monitor pt weight and intake. MATUTELIVIA Jun 08, 2018 11:26
== END 2018-06-08 11:35 | disposition home health service (06) | DRG 64 ==
LOC: ER 21:31 → MED 06-05 00:21 → INTOOBSV 06-05 00:21 → OBSVTOIN 06-06
PROVIDERS: ADMIT Family Medicine; ATTEND Family Medicine
DX: I63.9 Cerebral infarction, unspecified (principal); E43 Unspecified severe protein-calorie malnutrition; E87.1 Hypo-osmolality and hyponatremia; I10 Essential (primary) hypertension; F17.210 Nicotine dependence, cigarettes, uncomplicated; R53.1 Weakness; K52.9 Noninfective gastroenteritis and colitis, unspecified; F10.10 Alcohol abuse, uncomplicated; R63.4 Abnormal weight loss; E78.00 Pure hypercholesterolemia, unspecified; E11.9 Type 2 diabetes mellitus without complications; K76.0 Fatty (change of) liver, not elsewhere classified; F32.9 Major depressive disorder, single episode, unspecified; Y90.0 Blood alcohol level of less than 20 mg/100 ml; R29.703 NIHSS score 3; Z86.73 Personal history of transient ischemic attack (TIA), and cerebral infarction without residual deficits; Z87.19 Personal history of other diseases of the digestive system; Z96.612 Presence of left artificial shoulder joint; Z96.652 Presence of left artificial knee joint
CPT/HCPCS: 36415; 36416; 70030; 70200; 70450; 70496; 70498; 70551; 80320; 82040; 82247; 82310; 82374; 82435; 82465; 82565; 82947; 82948; 83630; 83690; 83718; 83735; 83880; 83930; 83935; 84075; 84132; 84134; 84155; 84295; 84300; 84450; 84460; 84478; 84484; 84520; 85025; 85610; 85730; 87040; 87045; 87324; 87449; 92523; 93005; 93306; 96360; 97162; 97165; 99285; G0378; J2405; J2765; J7030; J7050; Q9967

== ENCOUNTER → 2018-06-04 | Outpatient (CLI) | payer MEDICARE ==
[~2018-06-04] MED LIST changes: +ALBUTEROL INH; +ASPI81TA94 PO; +ATOR40TA24 PO; +IPRATRO INH; +LIPA1CAP63 PO; +OMEP-125 PO; -TRAZ-156 PO; +TRAZ100T31 PO; +TRAZ50TA34 PO; +VITA-175 PO
[2018-06-05 10:55] VITALS: BMI 16.6
--- NOTE | 2018-06-07 11:59 | SLP EVALUATION SUMMARY REPORT ---
INITIAL SPEECH THERAPY EVALUATION REPORT Cognitive Linguistic Assessment Ordering Provider: SHAY Oconnell Date of Evaluation: 06/07/2018 Patient : 03/15/1950, 58yo Clinician: Carole Damon M.S., CCC-[employer] Treatment Dx: Moderate cognitive linguistic deficit BACKGROUND The patient is a 58 year old male admitted to [facility] through the ER with confusion and diffuse weakness. CT scan illustrated multiple infarcts with L posterior parietal lobe compatible and R posterior occipital involvement. MRI also showed bilateral emboli shower. The pt has a history of ETOH abuse and was hyponatremic upon admission. LANGUAGE/COGNITION The Frederick Cognitive Assessment (MoCA) 7.3 alternative version was administered with the following results: -MoCA Total Score (TS): 19/30 = moderate cognitive impairment -Cognitive Domains Demonstrating Deficits: attention, immediate memory, short- term memory, working memory, visuospatial skills, and executive function. -Cognitive Domains Demonstrating Strength: orientation, language, word finding, and abstraction. The pt most significantly struggled to complete activities requiring executive function skills, immediate memory, and working memory. Pt appeared unaware of deficits and made no attempt to rectify errors throughout participation in assessment procedures. Processing speed was also somewhat decreased with delayed verbal responses delays and hesitancy prior to task execution. Relative areas of strength were noted during activities requiring orientation and language. The pt was pleasant, cooperative, and conversational. The patient has functionally impaired cognitive/communicative skills and is unsafe for discharge to prior living situation in the absence of daily supervision and support for all IADL activities. HH ST is also recommended at discharge. Results indicate the patient may demonstrate difficulty executing the following tasks: Coordinating and remembering to attend medical appointments Execution of complex instructions for safety and medical purposes Independent medication management Independent financial administrator Anticipation of environmental obstacles Functional problem solving within living environment SPEECH: WFL. VOICE: WFL. DYSPHAGIA: WFL w/ h20 screen. Pt with no complaints. RECOMMENDATIONS 1. ST 3x/wk 2. Daily supervision at discharge, assistance with medication management, assistance with financial administrator, assistance with medical appointments (scheduling, attendance) 3. HH ST PROGNOSIS: Good. Strong family support. PLAN OF CARE Short Term Goals 1. The patient will utilize external compensatory systems to support completion of organization/planning activities with 80% accuracy when provided with mod cues. 2. The patient will utilize trained internal and external memory strategies to promote immediate and delayed (10 min) retention of functional, novel information during 90% of opportunities with min cues. Long-Term Goals 1. The patient will demonstrate functional cognitive communication status for safety and maximized independence in d/c environment w/ appropriate access to home and community resources. Thank you for this referral. Please call [phone] Carole Damon M.S., CCC[employer] [*] MTDD
== END ==
LOC: AMB 21:02
PROVIDERS: ATTEND Nurse Practitioner
DX: R53.1 Weakness (principal); R13.0 Aphagia; R29.810 Facial weakness; R07.9 Chest pain, unspecified
CPT/HCPCS: A0425; A0427

== ENCOUNTER 2018-07-05 18:57 | Emergency (ER) | payer MEDICARE ==
[2018-06-05 10:55] VITALS: Wt 59.0 kg
[~2018-07-05 18:57] MED LIST changes: +ALBUTEROL INH; +ASPI81TA94 PO; +ATOR40TA24 PO; +IPRATRO INH; +LIPA1CAP63 PO; +OMEP-125 PO; +TRAZ100T31 PO; +VITA-175 PO
[2018-07-05] MEDS ORDERED: OMEP-125 PO (19:12)
[2018-07-05] MEDS ORDERED: FLUO-177 PO (19:12)
[2018-07-05] MEDS ORDERED: TRAZ50TA34 PO (19:12)
[2018-07-05] MEDS ORDERED: ENAL2.5T52 PO (19:12)
[2018-07-05] MEDS ORDERED: GABA-549 PO (19:12)
--- NOTE | 2018-07-05 19:12 | ER Report ---
History and Physical Time Seen By MD: 19:12 Hx. of Stated Complaint: SWELLING IN BILAT LE AND LEFT ARM X 1 MONTH Allergies: Coded Allergies: No Known Drug Allergies (Verified , 07/05/18) Home Meds Active Scripts Vitamin B Complex (B COMPLEX) 1 Each Tablet, 1 EACH PO DAILY, #100 TAB 1 Refill Prov:JASON OLMSTEAD MD 06/08/18 Reported Medications Omeprazole (OMEPRAZOLE) 20 Mg Capsule.dr, 1 CAP PO TID, CAP 07/05/18 Gabapentin (GABAPENTIN) 300 Mg Capsule, PO TID, CAPSULE 07/05/18 Trazodone Hcl (TRAZODONE HCL) 50 Mg Tablet, 50 MG PO QHS 07/05/18 Fluoxetine Hcl (FLUOXETINE HCL) 20 Mg Capsule, 20 MG PO QDAY, CAPSULE 07/05/18 Enalapril Maleate (ENALAPRIL MALEATE) 2.5 Mg Tablet, 2.5 MG PO BID 07/05/18 Atorvastatin Calcium (LIPITOR) 40 Mg Tablet, 0.5 TAB PO QDAY, TAB take 1/2 tablet of an 80 mg tablet for a dose of 40mg every night 06/06/18 Aspirin (ASPIRIN) 81 Mg Tab.chew, 81 MG PO QDAY, TAB.CHEW 06/06/18 Lipase/Protease/Amylase (SUSHILA BAUGH 24,000 UNITS CAPSULE) 1 Each Capsule., 1 EACH PO TIDAC 06/06/18 [albuterol/ipratro] No Conflict Check, 1 PUFF INH QID PRN for SHORTNESS OF BREATH albuterol 100/ipratro 20 mcg 06/06/18 Hydrocodone Bit/Acetaminophen (HYDROCODON-ACETAMINOPHEN 5-325) 1 Each Tablet, 1 TAB PO Q8H PRN for severe pain 11/19/14 Cholecalciferol (Vitamin D3) (VITAMIN D3) 1,000 Unit Capsule, 3 CAP PO DAILY, CAPSULE 11/19/14 Multivitamin W/Iron, Minerals (MULTIVITAMINS WITH IRON) 1 Each Tab.chew, 1 EACH PO DAILY, TAB.CHEW 11/19/14 Hx Smoking: Yes Smoking Status: Current: Every Day Smoker Hx Substance Use Disorder: No Hx Alcohol Use: Yes (QUITTING, NONE SINCE SURGERY ON 10/19) Constitutional Vital Sign - Last 24 Hours 07/05/18 19:00 Temp 98.0 Pulse 60 Resp 16 B/P (MAP) 92/69 Pulse Ox 94 O2 Delivery Room Air Depart Departure Latest Vital Signs Vital Signs Date Time Temp Pulse Resp B/P (MAP) Pulse Ox O2 Delivery O2 Flow Rate FiO2 07/05/18 19:00 98.0 60 16 92/69 94 Room Air Condition: Stable Disposition: HOME OR SELF-CARE Referrals: MELISSA COVARRUBIAS APRN [facility] (PCP) SHELBY HUERTA [facility] Jul 05, 2018 19:12
--- NOTE | 2018-07-05 19:19 | ER Report ---
History and Physical Time Seen By MD: 19:14 Hx. of Stated Complaint: SWELLING IN BILAT LE AND LEFT ARM X 1 MONTH HPI/ROS CHIEF COMPLAINT: Edema to bilateral lower extremities and left hand HISTORY OF PRESENT ILLNESS: 58-year-old male who is malnourished with a history of alcohol dependency. He also is edentulous. He had his teeth removed. He was supposed to be taking Ensure, but it has not provided or purchased. Patient I suspect is hypoalbuminemic. Patient notes no chest pain, no shortness of breath, no headache, no dizziness, no weakness. Patient was admitted to the hospital one month ago. He had an ischemic stroke. He was noted to be edematous at that time. REVIEW OF SYSTEMS: Respiratory: No cough, no dyspnea. Cardiovascular: No chest pain, no palpitations. Gastrointestinal: No vomiting, no abdominal pain. Musculoskeletal: No back pain. Allergies: Coded Allergies: No Known Drug Allergies (Verified , 07/05/18) Home Meds Active Scripts Spironolactone (SPIRONOLACTONE) 25 Mg Tablet, 25 MG PO DAILY for leg edema, #30 TAB 1 Refill Prov:CHARAN BREEN DO 07/05/18 Vitamin B Complex (B COMPLEX) 1 Each Tablet, 1 EACH PO DAILY, #100 TAB 1 Refill Prov:JASON OLMSTEAD MD 06/08/18 Reported Medications Omeprazole (OMEPRAZOLE) 20 Mg Capsule., 1 CAP PO TID, CAP 07/05/18 Gabapentin (GABAPENTIN) 300 Mg Capsule, PO TID, CAPSULE 07/05/18 Trazodone Hcl (TRAZODONE HCL) 50 Mg Tablet, 50 MG PO QHS 07/05/18 Fluoxetine Hcl (FLUOXETINE HCL) 20 Mg Capsule, 20 MG PO QDAY, CAPSULE 07/05/18 Enalapril Maleate (ENALAPRIL MALEATE) 2.5 Mg Tablet, 2.5 MG PO BID 07/05/18 Atorvastatin Calcium (LIPITOR) 40 Mg Tablet, 0.5 TAB PO QDAY, TAB take 1/2 tablet of an 80 mg tablet for a dose of 40mg every night 06/06/18 Aspirin (ASPIRIN) 81 Mg Tab.chew, 81 MG PO QDAY, TAB.CHEW 06/06/18 Lipase/Protease/Amylase (SUSHILA BAUGH 24,000 UNITS CAPSULE) 1 Each Capsule., 1 EACH PO TIDAC 06/06/18 [albuterol/ipratro] No Conflict Check, 1 PUFF INH QID PRN for SHORTNESS OF BREATH albuterol 100/ipratro 20 mcg 06/06/18 Hydrocodone Bit/Acetaminophen (HYDROCODON-ACETAMINOPHEN 5-325) 1 Each Tablet, 1 TAB PO Q8H PRN for severe pain 11/19/14 Cholecalciferol (Vitamin D3) (VITAMIN D3) 1,000 Unit Capsule, 3 CAP PO DAILY, CAPSULE 11/19/14 Multivitamin W/Iron, Minerals (MULTIVITAMINS WITH IRON) 1 Each Tab.chew, 1 EACH PO DAILY, TAB.CHEW 11/19/14 Past Medical/Surgical History History of TIA, hypertension, pancreatitis with history of stent, fatty liver disease, history of heavy alcohol use, chronic smoking, inguinal hernia repairs, neck surgery, rotator cuff repair and shoulder replacement surgery Reviewed Nurses Notes: Yes Old Medical Records Reviewed: Yes Hx Smoking: Yes Smoking Status: Current: Every Day Smoker Hx Substance Use Disorder: No Hx Alcohol Use: Yes (QUITTING, NONE SINCE SURGERY ON 10/19) Constitutional Vital Sign - Last 24 Hours 07/05/18 07/05/18 07/05/18 07/05/18 19:00 19:02 19:15 19:30 Temp 98.0 Pulse 60 54 53 Resp 16 B/P (MAP) 92/69 92/69 (77) 95/63 (74) Pulse Ox 94 97 95 O2 Delivery Room Air 07/05/18 07/05/18 19:45 20:00 Pulse 52 53 B/P (MAP) 98/81 (87) Pulse Ox 95 94 Physical Exam Vital signs stable, afebrile, pulse ox normal General Appearance: The patient is alert, has no immediate need for airway protection and no current signs of toxicity. ENT: Pupils equal and round no injection. Oropharynx without teeth. Mucous. Membranes are moist, no erythema Respiratory: Chest is non tender, lungs are clear to auscultation. No wheezing or rails Cardiac: regular rate and rhythm Gastrointestinal: Abdomen is soft and non tender, no masses, bowel sounds normal. No hepatomegaly Musculoskeletal: Neck: Neck is supple and non tender. Extremities have full range of motion and are non tender. Skin: No rashes or lesions. DIFFERENTIAL DIAGNOSIS: After history and physical exam differential diagnosis was considered for congestive heart failure, hypoalbuminemia, liver disease, renal disease, malnourishment. Medical Decision Making Data Points Result Diagram: 07/05/18 [id number]/[id number] Laboratory Hematology Test 07/05/18 19:24 07/05/18 19:31 Urine Color Yellow Urine Clarity Clear Urine pH 6.0 pH (4.8-9.5) Urine Specific Twain 1.030 Urine Protein Trace mg/dL (NEGATIVE) Urine Glucose (UA) 100 mg/dL (NEGATIVE) Urine Ketones Negative mg/dL (NEGATIVE) Urine Blood Negative (NEGATIVE) Urine Nitrite Negative (NEGATIVE) Urine Bilirubin Negative (NEGATIVE) Urine Urobilinogen 0.2 mg/dL (0.2-1.9) Urine Leukocyte Esterase Negative (NEGATIVE) Urine RBC <1 /HPF (0-2/HPF) Urine WBC 2 /HPF (0-5/HPF) Urine Squamous Epithelial Cells Moderate /LPF (</=FEW) Urine Bacteria Negative /HPF (NONE-FEW) Urine Hyaline Casts Few /LPF (NONE-FEW) Urine Mucus Few /HPF (NONE-FEW) Red Blood Count 3.21 M/uL (4.00-5.60) Mean Corpuscular Volume 88.8 fL (80.0-96.0) Mean Corpuscular Hemoglobin 30.4 pg (26.0-33.0) Mean Corpuscular Hemoglobin Concent 34.2 g/dL (32.0-36.0) Red Cell Distribution Width 16.3 % (11.5-14.5) Mean Platelet Volume 7.6 fL (7.2-11.1) Neutrophils (%) (Auto) 71.3 % (39.4-72.5) Lymphocytes (%) (Auto) 17.2 % (17.6-49.6) Monocytes (%) (Auto) 8.5 % (4.1-12.4) Eosinophils (%) (Auto) 1.9 % (0.4-6.7) Basophils (%) (Auto) 1.1 % (0.3-1.4) Nucleated RBC Relative Count (auto) 0.0 /100WBC Neutrophils # (Auto) 8.6 K/uL (2.0-7.4) Lymphocytes # (Auto) 2.1 K/uL (1.3-3.6) Monocytes # (Auto) 1.0 K/uL (0.3-1.0) Eosinophils # (Auto) 0.2 K/uL (0.0-0.5) Basophils # (Auto) 0.1 K/uL (0.0-0.1) Nucleated RBC Absolute Count (auto) 0.00 K/uL Prothrombin Time 13.2 seconds (12.0-14.4) Prothromb Time International Ratio 1.00 Activated Partial Thromboplast Time 31 seconds (23-35) Sodium Level 130 mmol/L (137-145) Potassium Level 3.7 mmol/L (3.5-5.0) Chloride Level 95 mmol/L (98-107) Carbon Dioxide Level 28 mmol/L (22-30) Blood Urea Nitrogen 7 mg/dl (9-21) Creatinine 0.50 mg/dl (0.66-1.25) Glomerular Filtration Rate Calc > 60.0 Random Glucose 126 mg/dl (75-110) Calcium Level 8.0 mg/dl (8.4-10.2) Total Bilirubin 0.1 mg/dl (0.2-1.3) Aspartate Amino Transf (AST/SGOT) 26 U/L (0-35) Alanine Aminotransferase (ALT/SGPT) 26 U/L (0-56) Alkaline Phosphatase 98 U/L (0-126) Ammonia < 9 UMOL/L (9-33) Total Protein 5.4 g/dl (6.3-8.2) Albumin 2.5 g/dl (3.5-5.0) Serum Alcohol < 10 mg/dl Chemistry Test 07/05/18 19:24 07/05/18 19:31 Urine Color Yellow Urine Clarity Clear Urine pH 6.0 pH (4.8-9.5) Urine Specific Twain 1.030 Urine Protein Trace mg/dL (NEGATIVE) Urine Glucose (UA) 100 mg/dL (NEGATIVE) Urine Ketones Negative mg/dL (NEGATIVE) Urine Blood Negative (NEGATIVE) Urine Nitrite Negative (NEGATIVE) Urine Bilirubin Negative (NEGATIVE) Urine Urobilinogen 0.2 mg/dL (0.2-1.9) Urine Leukocyte Esterase Negative (NEGATIVE) Urine RBC <1 /HPF (0-2/HPF) Urine WBC 2 /HPF (0-5/HPF) Urine Squamous Epithelial Cells Moderate /LPF (</=FEW) Urine Bacteria Negative /HPF (NONE-FEW) Urine Hyaline Casts Few /LPF (NONE-FEW) Urine Mucus Few /HPF (NONE-FEW) White Blood Count 12.1 k/uL (4.5-11.0) Red Blood Count 3.21 M/uL (4.00-5.60) Hemoglobin 9.7 g/dL (14.0-18.0) Hematocrit 28.5 % (42.0-52.0) Mean Corpuscular Volume 88.8 fL (80.0-96.0) Mean Corpuscular Hemoglobin 30.4 pg (26.0-33.0) Mean Corpuscular Hemoglobin Concent 34.2 g/dL (32.0-36.0) Red Cell Distribution Width 16.3 % (11.5-14.5) Platelet Count 305 K/uL (150-450) Mean Platelet Volume 7.6 fL (7.2-11.1) Neutrophils (%) (Auto) 71.3 % (39.4-72.5) Lymphocytes (%) (Auto) 17.2 % (17.6-49.6) Monocytes (%) (Auto) 8.5 % (4.1-12.4) Eosinophils (%) (Auto) 1.9 % (0.4-6.7) Basophils (%) (Auto) 1.1 % (0.3-1.4) Nucleated RBC Relative Count (auto) 0.0 /100WBC Neutrophils # (Auto) 8.6 K/uL (2.0-7.4) Lymphocytes # (Auto) 2.1 K/uL (1.3-3.6) Monocytes # (Auto) 1.0 K/uL (0.3-1.0) Eosinophils # (Auto) 0.2 K/uL (0.0-0.5) Basophils # (Auto) 0.1 K/uL (0.0-0.1) Nucleated RBC Absolute Count (auto) 0.00 K/uL Prothrombin Time 13.2 seconds (12.0-14.4) Prothromb Time International Ratio 1.00 Activated Partial Thromboplast Time 31 seconds (23-35) Glomerular Filtration Rate Calc > 60.0 Calcium Level 8.0 mg/dl (8.4-10.2) Total Bilirubin 0.1 mg/dl (0.2-1.3) Aspartate Amino Transf (AST/SGOT) 26 U/L (0-35) Alanine Aminotransferase (ALT/SGPT) 26 U/L (0-56) Alkaline Phosphatase 98 U/L (0-126) Ammonia < 9 UMOL/L (9-33) Total Protein 5.4 g/dl (6.3-8.2) Albumin 2.5 g/dl (3.5-5.0) Serum Alcohol < 10 mg/dl Coagulation Test 07/05/18 19:31 Prothrombin Time 13.2 seconds Prothromb Time International Ratio 1.00 Activated Partial Thromboplast Time 31 seconds Toxicology Test 07/05/18 19:31 Serum Alcohol < 10 mg/dl Urinalysis Test 07/05/18 19:24 Urine Color Yellow Urine Clarity Clear Urine pH 6.0 pH (4.8-9.5) Urine Specific Twain 1.030 Urine Protein Trace mg/dL (NEGATIVE) Urine Glucose (UA) 100 mg/dL (NEGATIVE) Urine Ketones Negative mg/dL (NEGATIVE) Urine Blood Negative (NEGATIVE) Urine Nitrite Negative (NEGATIVE) Urine Bilirubin Negative (NEGATIVE) Urine Urobilinogen 0.2 mg/dL (0.2-1.9) Urine Leukocyte Esterase Negative (NEGATIVE) Urine RBC <1 /HPF (0-2/HPF) Urine WBC 2 /HPF (0-5/HPF) Urine Squamous Epithelial Cells Moderate /LPF (</=FEW) Urine Bacteria Negative /HPF (NONE-FEW) Urine Hyaline Casts Few /LPF (NONE-FEW) Urine Mucus Few /HPF (NONE-FEW) ED Course/Re-evaluation ED Course Patient was minute to an examination room. H&P was done. The differential diagnoses was considered. On clinical examination. Patient has bilateral 2+ edema appears chronic in his lower extremity is,. Patient was noted to have edema during his last hospitalization 4 weeks ago. Patient asked if he is taking Ensure as was recommended by the doctors when he was discharged. He has not. He's [facility]. I instructed the patient he likely left ago by his own insurers at [employer] or other grocery store. Patient's diagnostic studies are baseline. His albumin is 2.5, which is likely contributing to his edema. Patient be placed on low-dose spironolactone 25 mg per day. To help reduce his edema. He's advised [facility]. Decision to Disposition Date: Jul 05, 2018 Decision to Disposition Time: 19:54 Depart Departure Latest Vital Signs Vital Signs Date Time Temp Pulse Resp B/P (MAP) Pulse Ox O2 Delivery O2 Flow Rate FiO2 07/05/18 20:00 53 98/81 (87) 94 07/05/18 19:00 98.0 16 Room Air Impression: Primary Impression: Edema Additional Impressions: Hypoalbuminemia History of alcoholism Edentulous Condition: Improved Disposition: HOME OR SELF-CARE Referrals: MELISSA COVARRUBIAS APRN MATERNAL FETAL PHYSICIAN-C (PCP) New Scripts Spironolactone (SPIRONOLACTONE) 25 Mg Tablet 25 MG PO DAILY for leg edema, #30 TAB 1 Refill Prov: CHARAN BREEN DO 07/05/18 Patient Instructions: Leg Edema (ED) Additional Instructions: [facility] Problem Qualifiers Primary Impression: Edema Edema type: unspecified Qualified Codes: R60.9 - Edema, unspecified CHARAN BREEN DO Jul 05, 2018 19:19
[2018-07-05 19:39] LABS: PLATELET COUNT, AUTOMATED 305 K/uL (150-450)
[2018-07-05] MEDS ORDERED: SPIR25TA80 PO (19:55)
[2018-07-05 20:00] VITALS: BP 98/81
== END 2018-07-05 20:06 | disposition home or self-care (01) ==
LOC: ER 19:14
DX: R60.0 Localized edema (principal); E88.09 Other disorders of plasma-protein metabolism, not elsewhere classified; F10.21 Alcohol dependence, in remission; K08.109 Complete loss of teeth, unspecified cause, unspecified class
CPT/HCPCS: 36415; 81001; 82140; 84443; 85025; 85610; 85730; 99283; G0480; 80320; 82040; 82247; 82310; 82374; 82435; 82565; 82947; 84075; 84132; 84155; 84295; 84450; 84460; 84520